=== PATIENT | male | born 1955 | race Caucasian/White ===

== ENCOUNTER 2019-12-25 06:59 | Inpatient (IN) | payer MEDICARE, OTHER ==
[2019-12-25] MEDS ORDERED: SODIUM CHLORIDE 0.9% 1,000 ML IV STA ×2 (07:26)
[2019-12-25] MEDS ORDERED: ONDANSETRON 4 MG/2 ML VIAL IVP STA (07:26)
[2019-12-25] MEDS ORDERED: MORPHINE SULFATE 4 MG/ML SYRINGE IVP STA (07:28)
--- NOTE | 2019-12-25 07:30 | ED ---
Abdominal Pain HPI - General Chief Complaint: Abdominal Pain Stated Complaint: lower abd pain Time Seen by Provider: 12/25/19 07:11 Source: patient, RN notes reviewed, old records reviewed Mode of arrival: ambulatory Limitations: no limitations - History of Present Illness Initial Comments: Patient is a 64-year-old now with a history of Diffuse B cell lymphoma and recent chemotherapy treatments at [facility] and his first treatment was 2 weeks ago. He presents emergency department today with 4 days of left-sided lower abdominal pain and tenderness. He reports he initially thought it was constipated and has been using MiraLAX which she has now had multiple episodes of diarrhea. He complains of lower abdominal cramping pain. He denies dysuria. He states he's had no bloody stools. - Related Data Allergies Allergy/AdvReac Type Severity Reaction Status Date / Time acetaminophen [From Tylenol] Allergy Anaphylaxis Verified 12/25/19 07:10 Review of Systems ROS Statement: Those systems with pertinent positive or pertinent negative responses have been documented in the HPI. ROS Other: All systems not noted in ROS Statement are negative. Past Medical History Past Medical History: Hypertension Additional Past Medical History / Comment(s): lymphoma, History of Any Multi-Drug Resistant Organisms: None Reported Past Surgical History: Adenoidectomy, Appendectomy, Hernia Repair, Tonsillectomy Additional Past Surgical History / Comment(s): left kidney removed Past Psychological History: No Psychological Hx Reported Smoking Status: Former smoker Past Alcohol Use History: Occasional Past Drug Use History: None Reported General Exam - General Exam Comments Initial Comments: 64-year-old male. Alert and oriented 3. Limitations: no limitations General appearance: alert, in no apparent distress Head exam: Present: atraumatic, normocephalic, normal inspection Eye exam: Present: normal appearance, PERRL, EOMI. Absent: scleral icterus, conjunctival injection, periorbital swelling ENT exam: Present: normal exam, normal oropharynx, mucous membranes moist Neck exam: Present: normal inspection. Absent: tenderness, meningismus, lymphadenopathy Respiratory exam: Present: normal lung sounds bilaterally. Absent: respiratory distress, wheezes, rales, rhonchi, stridor Cardiovascular Exam: Present: regular rate, normal rhythm, normal heart sounds. Absent: systolic murmur, diastolic murmur, rubs, gallop, clicks GI/Abdominal exam: Present: soft, tenderness (Left lower quadrant tenderness), normal bowel sounds. Absent: distended, guarding, rebound, rigid Extremities exam: Present: normal inspection, full ROM, normal capillary refill. Absent: tenderness, pedal edema, joint swelling, calf tenderness Back exam: Present: normal inspection, full ROM Neurological exam: Present: alert, oriented X3, CN II-XII intact Psychiatric exam: Present: normal affect, normal mood Skin exam: Present: warm, dry, intact, normal color. Absent: rash Course Vital Signs 12/25/19 07:05 Temperature 98.5 F Pulse Rate 70 Respiratory 20 Rate Blood Pressure 111/69 O2 Sat by Pulse 97 Oximetry - Reevaluation(s) Reevaluation #1: 12/25/19 09:34 I did attempt to fax lab work and contact the RN pulmonary care nurse for heel from his family reports they've been contact with them. Awaiting call from them, Oncologist is Dr. Stone. Medical Decision Making - Medical Decision Making 64-year-old male with complaints of lower abdominal pain for the past 3 days. He has evident history of B-cell lymphoma. On chemotherapy last treatment was 2 weeks ago. Patient was found be neutropenic with blood cell count of 1.7 with a bsolute Patient will count of 37. Patient stated that the oncologist stated that he may need Neulasta. Patient doesn't have improvement after IV hydration and morphine for pain. Computed tomography scan shows evidence of acute diverticulitis. Also mentioned right-sided pelvic atelectasis or possibly recent scone or delayed excretion. Patient's kidney function was within normal limits. Patient was started on Zosyn for concern for diverticulitis and neutropenia. I did fax the patient's lab work to the RN at [facility] and waiting further information. At this time Dr. Mackenzie also discussed case with Sound physician and Patient will be admitted.. - Lab Data Result diagrams: 12/25/19 07:41 12/25/19 07:41 Lab Results 12/25/19 12/25/19 12/25/19 Range/Units 07:41 07:41 07:41 WBC 1.7 L (3.8-10.6) k/uL RBC 4.62 (4.30-5.90) m/uL Hgb 13.1 (13.0-17.5) gm/dL Hct 38.4 L (39.0-53.0) % MCV 83.2 (80.0-100.0) fL MCH 28.3 (25.0-35.0) pg MCHC 34.0 (31.0-37.0) g/dL RDW 14.2 (11.5-15.5) % Plt Count 147 L (150-450) k/uL Neutrophils % (Manual) 22 % Lymphocytes % (Manual) 35 % Monocytes % (Manual) 36 % Eosinophils % (Manual) 6 % Basophils % (Manual) 1 % Neutrophils # (Manual) 0.37 L* (1.3-7.7) k/uL Lymphocytes # (Manual) 0.60 L (1.0-4.8) k/uL Monocytes # (Manual) 0.61 (0-1.0) k/uL Eosinophils # (Manual) 0.10 (0-0.7) k/uL Basophils # (Manual) 0.02 (0-0.2) k/uL Nucleated RBCs 0 (0-0) /100 WBC Manual Slide Review Performed RBC Morphology Normal PT (9.0-12.0) sec INR (<1.2) APTT (22.0-30.0) sec Sodium 137 (137-145) mmol/L Potassium 4.1 (3.5-5.1) mmol/L Chloride 108 H (98-107) mmol/L Carbon Dioxide 25 (22-30) mmol/L Anion Gap 4 mmol/L BUN 20 (9-20) mg/dL Creatinine 1.17 (0.66-1.25) mg/dL Est GFR (CKD-EPI)AfAm 76 (>60 ml/min/1.73 sqM) Est GFR (CKD-EPI)NonAf 66 (>60 ml/min/1.73 sqM) Glucose 103 H (74-99) mg/dL Plasma Lactic Acid Tyler (0.7-2.0) mmol/L Calcium 8.7 (8.4-10.2) mg/dL Total Bilirubin 0.5 (0.2-1.3) mg/dL AST 22 (17-59) U/L ALT 16 (4-49) U/L Alkaline Phosphatase 78 (38-126) U/L Total Protein 6.1 L (6.3-8.2) g/dL Albumin 3.4 L (3.5-5.0) g/dL Amylase 54 (30-110) U/L Lipase 136 (23-300) U/L Urine Color Yellow Urine Appearance Clear (Clear) Urine pH 5.5 (5.0-8.0) Ur Specific [place] 1.022 (1.001-1.035) Urine Protein Trace H (Negative) Urine Glucose (UA) Negative (Negative) Urine Ketones Negative (Negative) Urine Blood Negative (Negative) Urine Nitrite Negative (Negative) Urine Bilirubin Negative (Negative) Urine Urobilinogen <2.0 (<2.0) mg/dL Ur Leukocyte Esterase Negative (Negative) 12/25/19 12/25/19 Range/Units 07:41 07:41 WBC (3.8-10.6) k/uL RBC (4.30-5.90) m/uL Hgb (13.0-17.5) gm/dL Hct (39.0-53.0) % MCV (80.0-100.0) fL MCH (25.0-35.0) pg MCHC (31.0-37.0) g/dL RDW (11.5-15.5) % Plt Count (150-450) k/uL Neutrophils % (Manual) % Lymphocytes % (Manual) % Monocytes % (Manual) % Eosinophils % (Manual) % Basophils % (Manual) % Neutrophils # (Manual) (1.3-7.7) k/uL Lymphocytes # (Manual) (1.0-4.8) k/uL Monocytes # (Manual) (0-1.0) k/uL Eosinophils # (Manual) (0-0.7) k/uL Basophils # (Manual) (0-0.2) k/uL Nucleated RBCs (0-0) /100 WBC Manual Slide Review RBC Morphology PT 9.7 (9.0-12.0) sec INR 0.9 (<1.2) APTT 24.8 (22.0-30.0) sec Sodium (137-145) mmol/L Potassium (3.5-5.1) mmol/L Chloride (98-107) mmol/L Carbon Dioxide (22-30) mmol/L Anion Gap mmol/L BUN (9-20) mg/dL Creatinine (0.66-1.25) mg/dL Est GFR (CKD-EPI)AfAm (>60 ml/min/1.73 sqM) Est GFR (CKD-EPI)NonAf (>60 ml/min/1.73 sqM) Glucose (74-99) mg/dL Plasma Lactic Acid Tyler 0.6 L (0.7-2.0) mmol/L Calcium (8.4-10.2) mg/dL Total Bilirubin (0.2-1.3) mg/dL AST (17-59) U/L ALT (4-49) U/L Alkaline Phosphatase (38-126) U/L Total Protein (6.3-8.2) g/dL Albumin (3.5-5.0) g/dL Amylase (30-110) U/L Lipase (23-300) U/L Urine Color Urine Appearance (Clear) Urine pH (5.0-8.0) Ur Specific [place] (1.001-1.035) Urine Protein (Negative) Urine Glucose (UA) (Negative) Urine Ketones (Negative) Urine Blood (Negative) Urine Nitrite (Negative) Urine Bilirubin (Negative) Urine Urobilinogen (<2.0) mg/dL Ur Leukocyte Esterase (Negative) - Radiology Data Radiology results: report reviewed Exam positive for acute diverticulitis with proximal sigmoid colon in mild/moderate formation. No abscess or free air. Mild right-sided pelvic ectasis may be transient or could reflect a recently passed stone. Some degree of UPJ obstruction or underlying acute kidney injury is also possibility given the delayed excretion of contrast from the right kidney. Correlate with patient's renal function. A few enlarged retroperitoneal lymph nodes measuring up to 1.7 cm. Underlying metastatic disease is not excluded this time. Cor relate to relevant oncology history. Follow-up and management recommended. Prior left nephrectomy and adrenalectomy. Mildly dilated pancreatic duct at 5 mm no distal obstruction lesion is seen. This may be chronic as Patient could represent a branch IPM and. Any priors. 8 mm left basilar nodule compared outside prior. Disposition Clinical Impression: Neutropenia, Diverticulitis, B-cell lymphoma Disposition: ADMITTED IP TO THIS HOSP Is patient prescribed a controlled substance at d/c from ED?: No Referrals: Matt Mayberry MD [Primary Care Provider] - 1-2 days Time of Disposition: 09:34
[2019-12-25 08:01] LABS: Albumin 3.4 g/dL (3.5-5.0); Appearance,Urine Clear (Clear); Bilirubin,Urine Negative (Negative); Blood,Urine Negative (Negative); Calcium 8.7 mg/dL (8.4-10.2); Color,Urine Yellow; Glucose,Urine (UA) Negative (Negative); Ketones,Urine Negative (Negative); Leukocyte Esterase,Urine Negative (Negative); Nitrite,Urine Negative (Negative); PH, Urine 5.5 (5.0-8.0); Potassium 4.1 mmol/L (3.5-5.1); Protein,Urine Trace (Negative); Specific Gravity,Urine 1.022 (1.001-1.035); Total Bilirubin 0.5 mg/dL (0.2-1.3); Total Protein 6.1 g/dL (6.3-8.2); Urobilinogen,Urine <2.0 mg/dL (<2.0)
[2019-12-25 08:02] LABS: INR 0.9 (<1.2); Partial Thromboplastin Time 24.8 sec (22.0-30.0); Prothrombin Time 9.7 sec (9.0-12.0)
[2019-12-25 08:10] LABS: HCT 38.4 % (39.0-53.0); HGB 13.1 gm/dL (13.0-17.5); MCH 28.3 pg (25.0-35.0); MCV 83.2 fL (80.0-100.0); Mean Platelet Volume 8.4; Platelet Count 147 k/uL (150-450); RBC 4.62 m/uL (4.30-5.90); RDW 14.2 % (11.5-15.5); WBC 1.7 k/uL (3.8-10.6)
--- NOTE | 2019-12-25 08:48 | CT ---
EXAMINATION TYPE: CT abdomen pelvis w con DATE OF EXAM: 12/25/2019 COMPARISON: NONE HISTORY: 64-year-old male LLQ pain TECHNIQUE: Contiguous axial scanning of the abdomen and pelvis following administration of 100 ml Iso nata 300 IV contrast. Delayed images through the kidneys and coronal/sagittal reconstructions perform ed. CT DLP: 1892.3 mGycm Automated exposure control for dose reduction was used. FINDINGS: Heart normal size without pericardial effusion. Some strandy atelectasis at the lung bases without pl eural effusion. 8 mm pulmonary nodule at the left base overlying the hemidiaphragm, axial image 12 ca n be reassessed in 3 months. No focal liver lesion or biliary ductal dilatation. Portal venous system is patent. Gallbladder and spleen appear within normal limits. Left adrenal gland and left kidney are likely absent. Diffuse thickening of the right adrenal gland without discrete nodularity. Mild right-sided pelvicaliectasis with delayed excretion of contrast from the right kidney. No obstru cting stone. The ureter does not appear particularly dilated. Enlarged retroperitoneal lymph nodes measuring 1.6 cm retrocaval and 1.2 and 1.7 cm aortocaval. No dilated small bowel, free fluid, or free air. Liquid stool within the right side of the colon and some prominent fluid-filled small bowel loops in the left lower quadrant. Suspect a regional ileus. There is left-sided colonic diverticulosis, greate st in the sigmoid colon with short segment moderate wall thickening with surrounding inflammatory fat stranding at the proximal sigmoid. The main pancreatic duct is mildly dilated at 5 mm. No distal obstructing lesion seen. Mild circumferential bladder wall thickening. No abnormal fluid collection in the pelvis or pelvic ly mphadenopathy. Bones: Mild degenerative change of the hips. Hypertrophic facet arthropathy lumbar spine with grade 1 anterolisthesis of L4-L5. [facility] within the lower thoracic spine. IMPRESSION: 1. EXAM POSITIVE FOR ACUTE DIVERTICULITIS OF THE PROXIMAL SIGMOID WITH MILD TO MODERATE INFLAMMATION. NO ABSCESS OR FREE AIR. 2. MILD RIGHT-SIDED PELVICALIECTASIS MAY BE TRANSIENT OR COULD REFLECT A RECENTLY PASSED STONE. SOME DEGREE OF UPJ OBSTRUCTION OR UNDERLYING ACUTE KIDNEY INJURY IS ALSO A POSSIBILITY GIVEN THE DELAYED E XCRETION OF CONTRAST FROM THE RIGHT KIDNEY. CORRELATE WITH PATIENT'S RENAL FUNCTION. 3. A FEW ENLARGED RETROPERITONEAL LYMPH NODES MEASURING UP TO 1.7 CM. UNDERLYING METASTATIC DISEASE I S NOT EXCLUDED AT THIS TIME. CORRELATE TO ANY RELEVANT ONCOLOGIC HISTORY. APPROPRIATE FOLLOW-UP AN D MANAGEMENT RECOMMENDED. 4. WE NOTE A PRIOR LEFT NEPHRECTOMY AND ADRENALECTOMY. 5. MILDLY DILATED MAIN PANCREATIC DUCT AT 5 MM. NO DISTAL OBSTRUCTING LESION IS SEEN. THIS MAY BE CHR ONIC IN THIS PATIENT OR COULD REPRESENT A MAIN BRANCH IPMN. COMPARE WITH ANY AVAILABLE OUTSIDE PRIORS . 6. AN 8 MM LEFT BASILAR NODULE. COMPARE WITH ANY AVAILABLE OUTSIDE PRIORS. THREE-MONTH FOLLOW-UP CT C HEST CAN REASSESS
[2019-12-25 08:55] LABS: Neutrophils % (M) 22 %
[2019-12-25 09:01] LABS: Basophils # (M) 0.02 k/uL (0-0.2); Monocytes # (M) 0.61 k/uL (0-1.0); Neutrophils # (M) 0.37 k/uL (1.3-7.7); Nucleated Red Blood Cells 0 /100 WBC (0-0); Total Cells Counted 100
[2019-12-25] MEDS ORDERED: PIPERACILLIN-TAZOBACTAM 3.375 GM in SODIUM CHLORIDE 0.9% 100 ML IVPB STA (09:25)
[2019-12-25] MEDS ORDERED: ONDANSETRON 4 MG/2 ML VIAL IVP PRN (09:51)
[2019-12-25] MEDS ORDERED: IBUPROFEN 400 MG TAB PO PRN (09:51)
[2019-12-25] MEDS ORDERED: MORPHINE SULFATE 4 MG/ML SYRINGE IV PRN (09:51)
[2019-12-25] MEDS ORDERED: NALOXONE 0.4 MG/ML 1 ML VIAL IV PRN ×2 (09:51→18:04)
[2019-12-25] MEDS: SODIUM CHLORIDE 0.9% 1,000 ML IV SCH ×2 (10:36→22:49)
[2019-12-25] MEDS: KETOROLAC 15 MG/ML 1 ML VIAL IVP PRN ×2 (12:57→19:02)
[2019-12-25] MEDS: PIPERACILLIN-TAZOBACTAM 3.375 GM in SODIUM CHLORIDE 0.9% 100 ML IVPB SCH (16:25)
[2019-12-25] MEDS: carvediloL 6.25 MG TAB PO SCH (16:26)
[2019-12-25] MEDS ORDERED: MELATONIN 3 MG TABLET PO PRN (18:04)
[2019-12-25] MEDS ORDERED: traMADol 50 MG TAB PO PRN (18:04)
--- NOTE | 2019-12-25 18:08 | P.HPIM ---
History of Present Illness H&P Date: 12/25/19 Chief Complaint: Abdominal pain Patient is a 64-year-old male with a past medical history of diffuse B-cell lymphoma with first dose of chemotherapy on 12/12/2022 [facility], hypertension, and prior left renal cancer status post nephrectomy who presented to the ER with complaints of crampy abdominal pain. In the ER he underwent extensive evaluation. His vital signs on arrival were within normal limits. Laboratory analysis showed a white blood cell count of 1.7, absolute neutrophil count of 0.37, plasma lactic acid 0.6, albumin 3.4, and the remainder of his labs were unremarkable. He underwent a CT abdomen and pelvis which demonstrated acute diverticulitis in the proximal sigmoid colon but no abscess or free air. He was found to have some degree of obstruction of the right ureter as well as enlarged retroperitoneal lymph nodes measuring up to 1.7 cm-he reports that this is consistent with his prior outpatient scans. In the ER he was started on Zosyn, IV fluids, and pain medications. He was admitted for further monitoring. Patient seen and examined at bedside in the emergency department. He complains of abdominal pain for the last 6 days. He initially was having crampy abdominal pain that felt like he needed to have a bowel movement. He called his oncologist and was started on MiraLAX, as constipation is a known side effect of his chemotherapy regimen. He was taking MiraLAX every 4 hours and had a bowel movement followed by diarrhea for last 3 days. He states that his pain has been increasing over the last 6 days and the bowel movement did not completely relieve the pain but did help but slightly. He denies any blood in his bowel movements. He states he has been tolerating a diet. He denies any overall fatigue. No fevers. He has had some nausea but no vomiting. He reports that he had difficulty urinating secondary to external obstruction from his lymphadenopathy with this is unchanged. He reports that he had a colonoscopy quite some time ago. He reports that he had similar symptoms back in May and underwent a CAT scan in July which showed diverticulitis. That was limiting contrast cancer. He never required oral medications as his symptoms resolved before he got follow-up from his primary care physician. He also reports long bone pain and chest wall pain which is a known side effect of chemotherapy. Review of Systems Pertinent positives and negatives as discussed in HPI, a complete review of systems was performed and all other systems are negative. Past Medical History Past Medical History: Hypertension Additional Past Medical History / Comment(s): lymphoma, renal cancer Left kidney stage IV Mar 2004, Gout History of Any Multi-Drug Resistant Organisms: None Reported Past Surgical History: Adenoidectomy, Appendectomy, Hernia Repair, Tonsillectomy Additional Past Surgical History / Comment(s): left kidney removed Past Psychological History: No Psychological Hx Reported Smoking Status: Former smoker Past Alcohol Use History: Occasional Past Drug Use History: None Reported - Past Family History Father Family Medical History: Congestive Heart Failure (CHF) (o) Mother Additional Family Medical History / Comment(s): old age Medications and Allergies Home Medications Medication Instructions Recorded Confirmed Type Allopurinol [Zyloprim] 100 mg PO DAILY 12/25/19 12/25/19 History Carvedilol [Coreg] 6.25 mg PO BID 12/25/19 12/25/19 History Torsemide [Demadex] 30 mg PO DAILY 12/25/19 12/25/19 History amLODIPine [Norvasc] 10 mg PO DAILY 12/25/19 12/25/19 History lisinopriL 40 mg PO DAILY 12/25/19 12/25/19 History Allergies Allergy/AdvReac Type Severity Reaction Status Date / Time acetaminophen [From Tylenol] Allergy Anaphylaxis Verified 12/25/19 10:47 adhesive tape Allergy BLISTERS Verified 12/25/19 10:47 Physical Exam Osteopathic Statement: *. No significant issues noted on an osteopathic structural exam other than those noted in the History and Physical/Consult. Vitals: Vital Signs Temp Pulse Resp BP Pulse Ox 12/25/19 12:56 97.1 F L 65 18 127/69 96 12/25/19 10:17 97.6 F 63 18 113/73 98 12/25/19 07:05 98.5 F 70 20 111/69 97 Intake and Output 12/25/19 12/25/19 12/25/19 06:59 14:59 22:59 Other: Weight 113.398 kg General: Ill appearing, mild distress secondary to pain appears older than stated age Derm: warm, dry Head: atraumatic, normocephalic, symmetric Eyes: EOMI, no lid lag, anicteric sclera, pupils equal round reactive to light ENT: Nose and ears atraumatic, no thrush, no pharyngeal erythema Neck: No thyromegaly, no cervical lymphadenopathy, trachea midline, supple Mouth: no lip lesion, mucus membranes moist Cardiovascular: S1S2 reg, no murmur, positive posterior tibial pulse bilateral, no edema, capillary refill less than 2 seconds Lungs: clear to ascultation bilateral, no ronchi, no rales, no wheeze, no accessory muscle use Abdominal: Bowel sounds, soft, nondistended, tender to palpation left lower quadrant, hepatomegaly Ext: no gross muscle atrophy, muscle strength muscle strength 5 out of 5 in all 4 extremities, no contractures Neuro: CN II-XI grossly intact, light touch intact all 4 extremities, finger to nose within normal limits, Psych: Alert, oriented, appropriate affect Results CBC & Chem 7: 12/25/19 07:41 12/25/19 07:41 Labs: Abnormal Lab Results - Last 24 Hours (Table) 12/25/19 12/25/19 12/25/19 Range/Units 07:41 07:41 07:41 WBC 1.7 L (3.8-10.6) k/uL Hct 38.4 L (39.0-53.0) % Plt Count 147 L (150-450) k/uL Neutrophils # (Manual) 0.37 L* (1.3-7.7) k/uL Lymphocytes # (Manual) 0.60 L (1.0-4.8) k/uL Chloride 108 H (98-107) mmol/L Glucose 103 H (74-99) mg/dL Plasma Lactic Acid Tyler (0.7-2.0) mmol/L Total Protein 6.1 L (6.3-8.2) g/dL Albumin 3.4 L (3.5-5.0) g/dL Urine Protein Trace H (Negative) 12/25/19 Range/Units 07:41 WBC (3.8-10.6) k/uL Hct (39.0-53.0) % Plt Count (150-450) k/uL Neutrophils # (Manual) (1.3-7.7) k/uL Lymphocytes # (Manual) (1.0-4.8) k/uL Chloride (98-107) mmol/L Glucose (74-99) mg/dL Plasma Lactic Acid Tyler 0.6 L (0.7-2.0) mmol/L Total Protein (6.3-8.2) g/dL Albumin (3.5-5.0) g/dL Urine Protein (Negative) Thrombosis Risk Factor Assmnt - DVT/VTE Prophylaxis DVT/VTE Prophylaxis: Pharmacologic Prophylaxis ordered Assessment and Plan Assessment: Acute diverticulitis -Clear liquids, antibiotics, IV fluids, Zosyn, pain control Diffuse B-cell lymphoma with leukopenia and thrombocytopenia -Continue outpatient follow-up with [facility] -If white count is not improved in a.m. we'll consult hematology oncology to consider GM-CSF Hypertension, controlled -Continue lisinopril, Norvasc, and Coreg -Follow blood pressures Gout -Allopurinol The patient is admitted with an anticipated greater than 2 midnight stay for evaluation of acute diverticulitis in the setting of chemotherapy and leukopenia. Surrogate decision-maker: DVT prophylaxis: Lovenox Discussed with: Patient, nursing, ED physician Anticipated discharge date: 2-[address]: home A total of 75 minutes was spent on the care of this complex patient more than 50% of the time was spent in counseling and care coordination.
[2019-12-26] MEDS: PIPERACILLIN-TAZOBACTAM 3.375 GM in SODIUM CHLORIDE 0.9% 100 ML IVPB SCH ×3 (00:49→15:41)
[2019-12-26] MEDS: KETOROLAC 15 MG/ML 1 ML VIAL IVP PRN (03:01)
[2019-12-26] MEDS: SODIUM CHLORIDE 0.9% 1,000 ML IV SCH ×2 (07:16→21:07)
[2019-12-26 07:35] LABS: HGB 11.6 gm/dL (13.0-17.5); MCHC 33.1 g/dL (31.0-37.0); MCV 84.5 fL (80.0-100.0); Mean Platelet Volume 8.6; Platelet Count 162 k/uL (150-450); RBC 4.14 m/uL (4.30-5.90); RDW 14.3 % (11.5-15.5)
[2019-12-26 07:47] LABS: WBC 1.4 k/uL (3.8-10.6)
[2019-12-26] MEDS: carvediloL 6.25 MG TAB PO SCH ×2 (07:49→21:03)
[2019-12-26] MEDS: lisinopriL 20 MG TAB PO SCH (07:49)
[2019-12-26] MEDS: amLODIPine 10 MG TAB PO SCH (07:49)
[2019-12-26] MEDS: TORSEMIDE 20 MG TAB PO SCH (07:50)
[2019-12-26] MEDS: PANTOPRAZOLE 40 MG/10 ML VIAL IV SCH (07:50)
[2019-12-26] MEDS: ENOXAPARIN 40 MG/0.4 ML SYRINGE SQ SCH (07:51)
[2019-12-26] MEDS ORDERED: guaiFENesin 600 MG TABLET.ER PO PRN (08:43)
[2019-12-26 09:30] LABS: African American GFR (CKD) 67.3 (60.0-200.0); Albumin 3.4 g/dL (3.80-4.90); Albumin/Globulin Ratio 1.89 (1.60-3.17); Anion Gap 4.4 mmol/L (4.00-12.00); BUN/Creat Ratio 9.23 Ratio (12.00-20.00); Carbon Dioxide 26.6 mmol/L (21.6-31.8); Globulin 1.8 g/dL (1.6-3.3); Magnesium 1.8 mg/dL (1.5-2.4); Non-African American GFR(CKD) 58.1 (60.0-200.0); Phosphorus 2.8 mg/dL (2.4-5.1); Potassium 4.1 mmol/L (3.5-5.5); Total Bilirubin 0.3 mg/dL (0.3-1.2); Total Protein 5.2 g/dL (6.2-8.2)
[2019-12-26] MEDS: allopurinoL 100 MG TAB PO SCH (09:47)
[2019-12-26] MEDS: LORATADINE 10 MG TAB PO SCH (09:47)
[2019-12-26 11:01] LABS: Neutrophils % (M) 16 %
[2019-12-26 11:02] LABS: Band Neutrophils % 1 %; Basophils # (M) 0.01 k/uL (0-0.2); Eosinophils # (M) 0.01 k/uL (0-0.7); Monocytes # (M) 0.53 k/uL (0-1.0); Nucleated Red Blood Cells 0 /100 WBC (0-0); Total Cells Counted 100
--- NOTE | 2019-12-26 15:22 | P.PN ---
Subjective Progress Note Date: 12/26/19 (delayed charting seen at 0800) Principal diagnosis: abdominal pain Patient is a 64-year-old male with a past medical history of diffuse B-cell lymphoma with first dose of chemotherapy on 12/13/2019 [facility], hypertension, and prior left renal cancer status post nephrectomy who presented to the ER with complaints of crampy abdominal pain. In the ER he u nderwent extensive evaluation. His vital signs on arrival were within normal limits. Laboratory analysis showed a white blood cell count of 1.7, absolute neutrophil count of 0.37, plasma lactic acid 0.6, albumin 3.4, and the remainder of his labs were unremarkable. He underwent a CT abdomen and pelvis which demonstrated acute diverticulitis in the proximal sigmoid colon but no abscess or free air. He was found to have some degree of obstruction of the right ureter as well as enlarged retroperitoneal lymph nodes measuring up to 1.7 cm-he reports that this is consistent with his prior outpatient scans. In the ER he was started on Zosyn, IV fluids, and pain medications. He was admitted for further monitoring and treatment of his acute diverticulitis with neutropenia. His WBC decreased and heme/onc consulted regard GM-CSF use. Patient seen and examined at bedside. C/O sore throat and nasal congestion that started today, taste altered but feels due to chemo. No chest pain, no shortness of breath, no nausea, Still some abdominal but much improved from yesterday. Still with unformed bowel movements. General: non toxic, no distress, appears at stated age Derm: warm, dry Head: atraumatic, normocephalic, symmetric Eyes: EOMI, no lid lag, anicteric sclera Mouth: no lip lesion, mucus membranes moist Cardiovascular: S1S2 reg, no murmur, positive posterior tibial pulse bilateral, Lungs: CTA bilateral, no rhonchi, no rales , no accessory muscle use Abdominal: soft, nontender to palpation, no guarding, no appreciable organomegaly Ext: no gross muscle atrophy, no edema, no contractures Neuro: CN II-XI grossly intact, no focal neuro deficits Psych: Alert, oriented, appropriate affect Acute diverticulitis -Advance to full liquid diet, antiemetics, IV fluids, Zosyn, pain control Diffuse B-cell lymphoma with neutropenia and thrombocytopenia -Continue outpatient follow-up with [facility] -Await heme/onc recs: D/W Dr. Chinchilla Hypertension, controlled -Continue lisinopril, Norvasc, and Coreg -Follow blood pressures Rhinosinusitis - claritin - COVID-19 negative Gout -Allopurinol DVT prophylaxis: Lovenox Discussed with: Patient, nursing, Dr. Chinchilla Anticipated discharge date: 2-[address]: home A total of 35 minutes was spent on the care of this complex patient more than 50% of the time was spent in counseling and care coordination. Objective - Vital Signs Vital signs: Vital Signs Temp 97.6 F 12/26/19 14:10 Pulse 62 12/26/19 14:10 Resp 17 12/26/19 14:10 BP 128/76 12/26/19 14:10 Pulse Ox 99 12/26/19 14:10 Intake & Output 12/25/19 12/26/19 12/26/19 18:59 06:59 18:59 Intake Total 590 Balance 590 Weight 113.398 kg 113.398 kg Intake: Intake, IV Titration 300 Amount Piperacillin-Tazobactam 3 100 .375 gm In Sodium Chloride 0.9% 100 ml @ 25 mls/hr IVPB Q8HR CAS Rx# :[id number] Sodium Chloride 0.9% 1, 200 000 ml @ 100 mls/hr IV . Q10H CAS Rx#:[id number] Oral 290 Other: Voiding Method Toilet Toilet # Voids 1 2 - Labs CBC & Chem 7: 12/26/19 06:15 12/26/19 06:15 Labs: Abnormal Lab Results - Last 24 Hours (Table) 12/26/19 12/26/19 Range/Units 06:15 06:15 WBC 1.4 L* (3.8-10.6) k/uL RBC 4.14 L (4.30-5.90) m/uL Hgb 11.6 L (13.0-17.5) gm/dL Hct 35.0 L (39.0-53.0) % Neutrophils # (Manual) 0.20 L* (1.3-7.7) k/uL Lymphocytes # (Manual) 0.60 L (1.0-4.8) k/uL Est GFR (CKD-EPI)NonAf 58.1 L (60.0-200.0) BUN/Creatinine Ratio 9.23 L (12.00-20.00) Ratio Total Protein 5.2 L (6.2-8.2) g/dL Albumin 3.40 L (3.80-4.90) g/dL Microbiology - Last 24 Hours (Table) 12/25/19 10:25 Blood Culture - Preliminary Blood No Growth after 24 hours
[2019-12-26] MEDS: FILGRASTIM-SNDZ 480 MCG/0.8 ML SYRINGE SQ SCH (15:41)
[2019-12-26 20:35] VITALS: RESP 16
--- NOTE | 2019-12-26 21:38 | P.CONS ---
History of Present Illness - Reason for Consult Consult date: 12/26/19 NHL Requesting physician: Gabi Olvera - Chief Complaint Abdominal Pain - History of Present Illness Mr. Oleary presents to [facility] with complaints of abdominal pain. He is currently undergoing treatment for NHL out of the [facility]. It is believed he received R-CHOP without growth factor on 12/13/19. He has a known history of Hypertension, left renal cancer and nephrectomy. He described his abdominal pain as severe cramping, and soft frequent bowel movements which do provide some relief. CT abdomen and pelvis which demonstrated acute diverticulit is in the proximal sigmoid colon but no abscess or free air. He was found to have some degree of obstruction of the right ureter as well as enlarged retroperitoneal lymph nodes measuring up to 1.7 cm-he reports that this is consistent with his prior outpatient scans. His WBC and Neutrophils are low and we have started him on growth factor. Diet restriction and IV antibiotics initiated per primary team for treatment of acute diverticulitis. 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, first chemo treatment 12/12 at [facility],, renal cancer Left kidney stage IV Mar 2004, Gout History of Any Multi-Drug Resistant Organisms: None Reported Past Surgical History: Adenoidectomy, Appendectomy, Hernia Repair, Tonsillectomy Additional Past Surgical History / Comment(s): left kidney removed Past Anesthesia/Blood Transfusion Reactions: No Reported Reaction Past Psychological History: No Psychological Hx Reported Smoking Status: Former smoker Past Alcohol Use History: Occasional Past Drug Use History: None Reported - Past Family History Father Family Medical History: Congestive Heart Failure (CHF) Mother Additional Family Medical History / Comment(s): old age Medications and Allergies Home Medications Medication Instructions Recorded Confirmed Type Allopurinol [Zyloprim] 100 mg PO DAILY 12/25/19 12/25/19 History Carvedilol [Coreg] 6.25 mg PO BID 12/25/19 12/25/19 History Multivitamin [Multivitamins Adult 1 tablet PO DAILY 12/25/19 12/25/19 History Gummies] Torsemide [Demadex] 30 mg PO DAILY 12/25/19 12/25/19 History amLODIPine [Norvasc] 10 mg PO DAILY 12/25/19 12/25/19 History lisinopriL 40 mg PO DAILY 12/25/19 12/25/19 History Allergies Allergy/AdvReac Type Severity Reaction Status Date / Time acetaminophen [From Tylenol] Allergy Anaphylaxis Verified 12/25/19 22:25 adhesive tape Allergy BLISTERS Verified 12/25/19 22:25 Physical Exam Vitals: Vital Signs Temp Pulse Pulse Resp BP BP BP 12/26/19 20:34 98.3 F 63 16 135/85 12/26/19 14:10 97.6 F 62 17 128/76 12/26/19 07:36 97.4 F L 60 17 124/79 12/26/19 06:00 98.9 F 12/26/19 05:06 97.8 F 57 L 18 119/65 12/25/19 21:26 98.4 F 63 18 138/67 Pulse Ox 12/26/19 20:34 96 12/26/19 14:10 99 12/26/19 07:36 99 12/26/19 06:00 12/26/19 05:06 97 12/25/19 21:26 97 Intake and Output 12/26/19 12/26/19 12/26/19 06:59 14:59 22:59 Intake Total 300 Balance 300 Intake: Intake, IV Titration 300 Amount Piperacillin-Tazobactam 3 100 .375 gm In Sodium Chloride 0.9% 100 ml @ 25 mls/hr IVPB Q8HR CAS Rx# :[id number] Sodium Chloride 0.9% 1, 200 000 ml @ 100 mls/hr IV . Q10H CAS Rx#:[id number] Other: Voiding Method Toilet Toilet Toilet # Voids 1 2 - Constitutional General appearance: cooperative, no acute distress - EENT Eyes: EOMI, PERRLA ENT: NA/AT, normal oropharynx - Neck Neck: normal ROM - Respiratory Respiratory: bilateral: CTA - Cardiovascular Rhythm: regular Heart sounds: normal: S1, S2 - Gastrointestinal General gastrointestinal: normal bowel sounds, soft - Integumentary Integumentary: pale - Neurologic Neurologic: CNII-XII intact - Musculoskeletal Musculoskeletal: generalized weakness, strength equal bilaterally - Psychiatric Psychiatric: A&O x's 3, appropriate affect, intact judgment & insight Results CBC & Chem 7: 12/26/19 06:15 11/11/20 06:15 Labs: Abnormal Lab Results - Last 24 Hours (Table) 12/26/19 12/26/19 Range/Units 06:15 06:15 WBC 1.4 L* (3.8-10.6) k/uL RBC 4.14 L (4.30-5.90) m/uL Hgb 11.6 L (13.0-17.5) gm/dL Hct 35.0 L (39.0-53.0) % Neutrophils # (Manual) 0.20 L* (1.3-7.7) k/uL Lymphocytes # (Manual) 0.60 L (1.0-4.8) k/uL Est GFR (CKD-EPI)NonAf 58.1 L (60.0-200.0) BUN/Creatinine Ratio 9.23 L (12.00-20.00) Ratio Total Protein 5.2 L (6.2-8.2) g/dL Albumin 3.40 L (3.80-4.90) g/dL Microbiology - Last 24 Hours (Table) 12/25/19 10:25 Blood Culture - Preliminary Blood No Growth after [address] scan - abdomen: report reviewed CT scan - pelvis: report reviewed Assessment and Plan (1) Normocytic anemia Narrative/Plan: Stable - If less than 7 transfuse Current Visit: Yes Status: Acute Code(s): D64.9 - ANEMIA, UNSPECIFIED SNOMED Code(s): 074481033 (2) B-cell lymphoma Narrative/Plan: - Treatment [facility] - Status POst R-CHOP does not believe he received Growth factor, although either way past the allocated timeframe and adding zarxio is indicated at this point - Monitor for TLS - Stop NSAIDS unless absolutely necessary Current Visit: Yes Status: Acute Code(s): C85.10 - UNSPECIFIED B-CELL LYMPHOMA, UNSPECIFIED SITE SNOMED Code(s): 653309165 (3) Diverticulitis Narrative/Plan: - Per Primary team, IV Zosyn Current Visit: Yes Status: Acute Code(s): K57.92 - DVTRCLI OF INTEST, PART UNSP, W/O PERF OR ABSCESS W/O BLEED SNOMED Code(s): 332022193 (4) Neutropenia Narrative/Plan: - Secondary to Chemotherapy, Lymphoma, and acute Inflammatory process -Huynh Cultures Pending - Zarxio to increase immune support Current Visit: Yes Status: Acute Code(s): D70.9 - NEUTROPENIA, UNSPECIFIED SNOMED Code(s): 788252003 Plan: Physician Attest: I have performed the complete history and ohysical and agree with above dictation, dictated as a scribe
[2019-12-27] MEDS: PIPERACILLIN-TAZOBACTAM 3.375 GM in SODIUM CHLORIDE 0.9% 100 ML IVPB SCH ×2 (01:29→08:53)
[2019-12-27 06:18] LABS: HCT 38.6 % (39.0-53.0); HGB 12.7 gm/dL (13.0-17.5); MCH 27.8 pg (25.0-35.0); MCHC 32.7 g/dL (31.0-37.0); MCV 85.1 fL (80.0-100.0); Mean Platelet Volume 7.7; Platelet Count 224 k/uL (150-450); RBC 4.54 m/uL (4.30-5.90); RDW 13.9 % (11.5-15.5)
[2019-12-27 07:02] LABS: Band Neutrophils % 38 %; Lymphocytes # (M) 1.04 k/uL (1.0-4.8); Monocytes # (M) 0.88 k/uL (0-1.0); Neutrophils % (M) 14 %; Nucleated Red Blood Cells 0 /100 WBC (0-0); Total Cells Counted 200
[2019-12-27] MEDS: FILGRASTIM-SNDZ 480 MCG/0.8 ML SYRINGE SQ SCH (08:53)
[2019-12-27] MEDS: PANTOPRAZOLE 40 MG/10 ML VIAL IV SCH (08:53)
[2019-12-27] MEDS: allopurinoL 100 MG TAB PO SCH (08:54)
[2019-12-27] MEDS: carvediloL 6.25 MG TAB PO SCH (08:54)
[2019-12-27] MEDS: amLODIPine 10 MG TAB PO SCH (08:55)
[2019-12-27] MEDS: LORATADINE 10 MG TAB PO SCH (08:55)
[2019-12-27] MEDS: TORSEMIDE 20 MG TAB PO SCH (08:55)
[2019-12-27] MEDS: lisinopriL 20 MG TAB PO SCH (08:55)
[2019-12-27] MEDS: ENOXAPARIN 40 MG/0.4 ML SYRINGE SQ SCH (08:56)
[2019-12-27 10:20] LABS: African American GFR (CKD) 61.5 (60.0-200.0); Albumin 3.5 g/dL (3.80-4.90); Albumin/Globulin Ratio 1.67 (1.60-3.17); Anion Gap 7.1 mmol/L (4.00-12.00); BUN/Creat Ratio 5.71 Ratio (12.00-20.00); Calcium 9.1 mg/dL (8.7-10.3); Carbon Dioxide 28.9 mmol/L (21.6-31.8); Globulin 2.1 g/dL (1.6-3.3); Magnesium 1.7 mg/dL (1.5-2.4); Non-African American GFR(CKD) 53.1 (60.0-200.0); Potassium 4.1 mmol/L (3.5-5.5); Total Bilirubin 0.3 mg/dL (0.2-1.2); Total Protein 5.6 g/dL (6.2-8.2); Uric Acid 4.8 mg/dL (3.7-8.7)
[2019-12-27 14:04] VITALS: BP 129/78; PULSE 69; TEMP 97.6
--- NOTE | 2019-12-27 17:49 | P.DS ---
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 In the ER he underwent extensive evaluation. His vital signs on arrival were within normal limits. Laboratory analysis showed a white blood cell count of 1.7, absolute neutrophil count of 0.37, plasma lactic acid 0.6, albumin 3.4, and the remainder of his labs were unremarkable. He underwent a CT abdomen and pelvis which demonstrated acute diverticulitis in the proximal sigmoid colon but no abscess or free air. He was found to have some degree of obstruction of the right ureter as well as enlarged retroperitoneal lymph nodes measuring up to 1.7 cm-he reports that this is consistent with his prior outpatient scans. In the ER he was started on Zosyn, IV fluids, and pain medications. He was admitted for further monitoring and treatment of his acute diverticulitis with neutropenia. His WBC decreased and heme/onc consulted regard GM-CSF use. Hematology oncology agreed with starting filgrastim He was maintained nothing by mouth until his white blood cell count increased. He had a rapid response to the GM-CSF and his white blood cell count was 4 on 12/26. He was started on a full liquid diet which he tolerated well. His pain was well-controlled. He was afebrile. He was determined stable for discharge home. He will complete a seven-day course of Flagyl and Levaquin for treatment of his diverticulitis. He will keep his already scheduled appointment with [facility] oncology regarding his next chemotherapy infusion and port placement. Patient seen and examined at bedside. Abdominal pain 90% better, feeling hungry, no nausea, no vomiting. Having less frequent bowel movements. Vital signs reviewed and stable. General: non toxic, no distress, appears at stated age Derm: warm, dry Head: atraumatic, normocephalic, symmetric Eyes: EOMI, no lid lag, anicteric sclera Mouth: no lip lesion, mucus membranes moist Cardiovascular: S1S2 reg, no murmur, positive posterior tibial pulse bilateral, Lungs: CTA bilateral, no rhonchi, no rales , no accessory muscle use Abdominal: soft, nontender to palpation, no guarding, no appreciable organomegaly Ext: no gross muscle atrophy, no edema, no contractures Neuro: CN II-XI grossly intact, no focal neuro deficits Psych: Alert, oriented, appropriate affect A total of 35 minutes of time were spent preparing this complex discharge summary . Patient Condition at Discharge: Stable Plan - Discharge Summary Discharge Rx Participant: No New Discharge Prescriptions: New metroNIDAZOLE [Flagyl] 500 mg PO TID #21 tab Levofloxacin [Levaquin] 750 mg PO DAILY 7 Days #7 tab Continue lisinopriL 40 mg PO DAILY amLODIPine [Norvasc] 10 mg PO DAILY Carvedilol [Coreg] 6.25 mg PO BID Allopurinol [Zyloprim] 100 mg PO DAILY Torsemide [Demadex] 30 mg PO DAILY Multivitamin [Multivitamins Adult Gummies] 1 tablet PO DAILY Discharge Medication List Allopurinol [Zyloprim] 100 mg PO DAILY 12/25/19 [History] Carvedilol [Coreg] 6.25 mg PO BID 12/25/19 [History] Multivitamin [Multivitamins Adult Gummies] 1 tablet PO DAILY 12/25/19 [History] Torsemide [Demadex] 30 mg PO DAILY 12/25/19 [History] amLODIPine [Norvasc] 10 mg PO DAILY 12/25/19 [History] lisinopriL 40 mg PO DAILY 12/25/19 [History] Levofloxacin [Levaquin] 750 mg PO DAILY 7 Days #7 tab 12/27/19 [Rx] metroNIDAZOLE [Flagyl] 500 mg PO TID #21 tab 12/27/19 [Rx] Follow up Appointment(s)/Referral(s): Matt Mayberry MD [Primary Care Provider] - 1-2 days (Please call to set up your appointment with your primary care physician for the next 1 - 2 days) Seng Arvizu [STAFF PHYSICIAN] - As Needed (option for PCP) Patient Instructions/Handouts: Diverticulitis (DC), Neutropenia (DC) Activity/Diet/Wound Care/Special Instructions: Activity: as tolerated Diet: Full liquid for 3 days and then low residual until follow up with family physician Special Instructions: Follow-up with [facility] oncology as previously scheduled. Discharge Disposition: HOME SELF-CARE
--- NOTE | 2019-12-27 18:47 | P.PN ---
Subjective Progress Note Date: 12/27/19 Principal diagnosis: Neutropenia Feeling better plannng for discharge Objective - Vital Signs Vital signs: Vital Signs Temp 97.6 F 12/27/19 14:03 Pulse 69 12/27/19 14:03 Resp 16 12/27/19 14:03 BP 129/78 12/27/19 14:03 Pulse Ox 96 12/27/19 14:03 Intake & Output 12/26/19 12/27/19 12/27/19 18:59 06:59 18:59 Intake Total 400 800 Balance 400 800 Intake: Intake, IV Titration 400 800 Amount Sodium Chloride 0.9% 1, 400 800 000 ml @ 100 mls/hr IV . Q10H CAS Rx#:[id number] Oral 0 Other: Voiding Method Toilet Toilet # Voids 2 2 - Exam - Constitutional General appearance: cooperative, no acute distress - EENT Eyes: EOMI, PERRLA ENT: NA/AT, normal oropharynx - Neck Neck: normal ROM - Respiratory Respiratory: bilateral: CTA - Cardiovascular Rhythm: regular Heart sounds: normal: S1, S2 - Gastrointestinal General gastrointestinal: normal bowel sounds, soft - Integumentary Integumentary: pale - Neurologic Neurologic: CNII-XII intact - Musculoskeletal Musculoskeletal: generalized weakness, strength equal bilaterally - Psychiatric Psychiatric: A&O x's 3, appropriate affect, intact judgment & insight - Labs CBC & Chem 7: 12/27/19 05:27 12/27/19 05:27 Labs: Abnormal Lab Results - Last 24 Hours (Table) 12/27/19 12/27/19 Range/Units 05:27 05:27 Hgb 12.7 L (13.0-17.5) gm/dL Hct 38.6 L (39.0-53.0) % BUN 8.0 L (9.0-27.0) mg/dL Est GFR (CKD-EPI)NonAf 53.1 L (60.0-200.0) BUN/Creatinine Ratio 5.71 L (12.00-20.00) Ratio Total Protein 5.6 L (6.2-8.2) g/dL Albumin 3.50 L (3.80-4.90) g/dL Microbiology - Last 24 Hours (Table) 12/25/19 10:25 Blood Culture - Preliminary Blood No Growth after 48 hours Assessment and Plan (1) Normocytic anemia Narrative/Plan: Stable - If less than 7 transfuse Status: Acute Code(s): D64.9 - ANEMIA, UNSPECIFIED SNOMED Code(s): 066103582 (2) B-cell lymphoma Narrative/Plan: - Treatment [facility] - Status POst R-CHOP does not believe he received Growth factor, although either way past the allocated timeframe and adding zarxio is indicated at this point - Monitor for TLS - Stop NSAIDS unless absolutely necessary Status: Acute Code(s): C85.10 - UNSPECIFIED B-CELL LYMPHOMA, UNSPECIFIED SITE SNOMED Code(s): 831246755 (3) Diverticulitis Narrative/Plan: - Per Primary team, IV Zosyn Status: Acute Code(s): K57.92 - DVTRCLI OF INTEST, PART UNSP, W/O PERF OR ABSCESS W/O BLEED SNOMED Code(s): 915187138 (4) Neutropenia Narrative/Plan: - Secondary to Chemotherapy, Lymphoma, and acute Inflammatory process -Huynh Cultures Pending - Zarxio to increase immune support can be discontinued as WBC and ANC improved Status: Acute Code(s): D70.9 - NEUTROPENIA, UNSPECIFIED SNOMED Code(s): 594353312 Plan: Tolerating full liquid Physician Attest: I have performed the complete history and ohysical and agree w ith above dictation, dictated as a scribe
[2019-12-28] MEDS ORDERED: PANTOPRAZOLE 40 MG TABLET PO SCH (09:00)
[2019-12-29 19:41] LABS: LD Isoenzymes 1 22 % (19-38); LD Isoenzymes 2 39 % (30-43); LD Isoenzymes 3 21 % (16-26); LD Isoenzymes 4 9 % (3-12); LD Isoenzymes 5 9 % (3-14); Lactacte Dehydrogenase(LD) ISO 134 U/L (120-250)
== END 2019-12-27 17:04 | disposition home or self-care (01) | DRG 392 ==
LOC: EC 06:59 → 6NMEDSUR 09:24 → 5NMEDONC 21:48
PROVIDERS: ADMIT Internal Medicine; ATTEND Internal Medicine
DX: K57.32 Diverticulitis of large intestine without perforation or abscess without bleeding (principal); C85.10 Unspecified B-cell lymphoma, unspecified site; E89.6 Postprocedural adrenocortical (-medullary) hypofunction; M10.9 Gout, unspecified; K59.00 Constipation, unspecified; T45.1X5A Adverse effect of antineoplastic and immunosuppressive drugs, initial encounter; D64.9 Anemia, unspecified; D69.6 Thrombocytopenia, unspecified; D70.9 Neutropenia, unspecified; I10 Essential (primary) hypertension; J32.9 Chronic sinusitis, unspecified; N13.5 Crossing vessel and stricture of ureter without hydronephrosis; Z20.828 Contact with and (suspected) exposure to other viral communicable diseases; Z79.899 Other long term (current) drug therapy; Z82.49 Family history of ischemic heart disease and other diseases of the circulatory system; Z85.528 Personal history of other malignant neoplasm of kidney; Z90.5 Acquired absence of kidney; Z87.891 Personal history of nicotine dependence; Z90.89 Acquired absence of other organs; Z88.6 Allergy status to analgesic agent; Z90.49 Acquired absence of other specified parts of digestive tract
CPT/HCPCS: 36415; 74177; 80053; 81003; 82150; 83605; 83625; 83690; 83735; 84100; 84550; 85025; 85610; 85730; 87040; 87635; 96361; 96365; 96375; 99285

== ENCOUNTER 2020-02-19 10:26 | Inpatient (IN) | payer MEDICARE, OTHER ==
[2020-02-19 11:41] LABS: Appearance,Urine Clear (Clear); Bilirubin,Urine Negative (Negative); Blood,Urine Negative (Negative); Color,Urine Yellow; Glucose,Urine (UA) Negative (Negative); Ketones,Urine Negative (Negative); Leukocyte Esterase,Urine Negative (Negative); Nitrite,Urine Negative (Negative); Protein,Urine Negative (Negative); Specific Gravity,Urine 1.016 (1.001-1.035); Urobilinogen,Urine <2.0 mg/dL (<2.0)
[2020-02-19 11:57] LABS: Anisocytosis Slight; HCT 31.3 % (39.0-53.0); HGB 10.7 gm/dL (13.0-17.5); INR 0.9 (<1.2); MCHC 34.1 g/dL (31.0-37.0); MCV 85.2 fL (80.0-100.0); Mean Platelet Volume 7.6; Partial Thromboplastin Time 22.4 sec (22.0-30.0); Platelet Count 148 k/uL (150-450); Prothrombin Time 10.1 sec (9.0-12.0); RBC 3.67 m/uL (4.30-5.90)
[2020-02-19 12:00] LABS: ALT 28 U/L (4-49); AST 22 U/L (17-59); African American GFR (CKD) >90 (>60 ml/min/1.73 sqM); Albumin 3.4 g/dL (3.5-5.0); Alkaline Phosphatase 117 U/L (38-126); Anion Gap 5 mmol/L; Blood Urea Nitrogen 18 mg/dL (9-20); Calcium 9.1 mg/dL (8.4-10.2); Carbon Dioxide 26 mmol/L (22-30); Chloride 103 mmol/L (98-107); Glucose 95 mg/dL (74-99); Non-African American GFR(CKD) >90 (>60 ml/min/1.73 sqM); Sodium 134 mmol/L (137-145); Total Bilirubin 0.8 mg/dL (0.2-1.3)
[2020-02-19 12:02] LABS: WBC 0.4 k/uL (3.8-10.6)
--- NOTE | 2020-02-19 12:26 | XR ---
EXAMINATION TYPE: XR chest 2V DATE OF EXAM: 02/19/2020 COMPARISON: None INDICATION: Difficulty breathing TECHNIQUE: Frontal and lateral views of the chest are obtained. FINDINGS: The heart size is normal. The pulmonary vasculature is normal. The lungs are clear. There is a focal eventration of the right diaphragm. Port is present on the rig ht with the tip in superior vena cava region. IMPRESSION: 1. No acute pulmonary process.
--- NOTE | 2020-02-19 13:13 | ED ---
SOB HPI - General Chief Complaint: Shortness of Breath Stated Complaint: Sent by PCP Time Seen by Provider: 02/19/20 10:47 Source: patient Mode of arrival: ambulatory Limitations: no limitations - History of Present Illness Initial Comments: Patient is a 64-year-old male with past medical history of B-cell lymphoma, currently on his fourth round of chemotherapy who presents to emergency room with reported shortness of breath. He states that he last received his chemo on . He received that at [facility]. Patient has a previous history of renal cell cancer, stage IV for which she is in remission. He continued to follow with his same oncologist. States he had a PET scan recently which showed good results with the chemo. Shortly after his infusion he began having exertional shortness of breath. States he can't do small tasks without having to sit down. Denies previous history of underlying lung conditions. Does not use oxygen at home. Denies a cough, fevers or chills. He did call his primary care doctor who recommended that he come to the hospital to be evaluated for a blood clot. Patient reports he's also been having left lower quadrant abdominal pain. This pain is consistent with his previous history of diverticulitis. States he's been hospitalized previously for his diverticulitis. He is due for a Neulasta shot on Tuesday. Sees Dr. Chinchilla in [place]. Denies history of DVT or PE. No lower extremity swelling. No covid exposure. 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, precipitating or modifying factors - Related Data Home Medications Medication Instructions Recorded Confirmed Allopurinol [Zyloprim] 100 mg PO DAILY 12/25/19 02/26/20 Torsemide [Demadex] 30 mg PO DAILY 12/25/19 02/26/20 lisinopriL 40 mg PO DAILY 12/25/19 02/26/20 Atorvastatin [Lipitor] 20 mg PO HS 02/26/20 02/26/20 Allergies Allergy/AdvReac Type Severity Reaction Status Date / Time acetaminophen [From Tylenol] Allergy Anaphylaxis Verified 02/26/20 11:16 adhesive tape Allergy BLISTERS Verified 02/26/20 11:16 Review of Systems ROS Statement: Those systems with pertinent positive or pertinent negative responses have been documented in the HPI. ROS Other: All systems not noted in ROS Statement are negative. 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, [facility], renal cancer Left kidney stage IV Mar 2004, Gout History of Any Multi-Drug Resistant Organisms: None Reported Past Surgical History: Adenoidectomy, Appendectomy, Hernia Repair, Tonsillectomy Additional Past Surgical History / Comment(s): left kidney removed Past Anesthesia/Blood Transfusion Reactions: No Reported Reaction Past Psychological History: No Psychological Hx Reported Smoking Status: Former smoker Past Alcohol Use History: Occasional Past Drug Use History: None Reported - Past Family History Father Family Medical History: Congestive Heart Failure (CHF) Mother Additional Family Medical History / Comment(s): old age General Exam Limitations: no limitations General appearance: alert, in no apparent distress Head exam: Present: atraumatic, normocephalic, normal inspection Eye exam: Present: normal appearance, PERRL, EOMI. Absent: scleral icterus, conjunctival injection, periorbital swelling ENT exam: Present: normal exam, mucous membranes moist Neck exam: Present: normal inspection. Absent: tenderness, meningismus, lymphadenopathy Respiratory exam: Present: normal lung sounds bilaterally. Absent: respiratory distress, wheezes, rales, rhonchi, stridor Cardiovascular Exam: Present: normal rhythm, tachycardia, normal heart sounds. Absent: systolic murmur, diastolic murmur, rubs, gallop, clicks GI/Abdominal exam: Present: soft, tenderness (llq), normal bowel sounds. Absent: distended, guarding, rebound, rigid Extremities exam: Present: normal inspection, full ROM, normal capillary refill. Absent: tenderness, pedal edema, joint swelling, calf tenderness Back exam: Present: normal inspection Neurological exam: Present: alert, oriented X3, CN II-XII intact Psychiatric exam: Present: normal affect, normal mood Skin exam: Present: warm, dry, intact, normal color. Absent: rash Course Vital Signs 02/19/20 02/19/20 02/19/20 10:41 11:36 12:25 Temperature 100 F H Pulse Rate 111 H 114 H 102 H Respiratory 18 18 18 Rate Blood Pressure 125/62 113/73 127/75 O2 Sat by Pulse 96 96 97 Oximetry 02/19/20 02/19/20 13:51 16:32 Temperature Pulse Rate 95 98 Respiratory 18 18 Rate Blood Pressure 120/83 116/77 O2 Sat by Pulse 98 99 Oximetry Medical Decision Making - Medical Decision Making Upon arrival patient is placed into room 1. A thorough history and physical exam was performed. Patient does have a high heart rate. Peripheral IV is established and the patient is started on IV fluids. Laboratory studies were conducted. Patient is pancytopenic with a white blood cell count of 0.4. Hemoglobin 10.7. Platelets 148. D-dimer is elevated at 0.94. Troponin is 0.013. Urinalysis negative. Influenza and Covid is negative. Chest x-ray demonstrates no acute cardiopulmonary process. Because of the patient's resistant tachycardia with shortness of breath he is sent for a PE study. This demonstrates no evidence for pulmonary embolism. COPD with mild emphysema and a possible superimposed acute bronchitis. Patient was given a dose of steroids for the bronchitis. A CT of the abdomen and pelvis was also performed because the patient's history of diverticulitis with does demonstrate mild to moderate inflammation of the sigmoid colon consistent with acute diverticulitis. The results are discussed the patient. He has required hospital for his diverticulitis before. Because of this persistent high heart rate I will admit the patient. Discussed case with Dr. Farley who accepted admission. Will place Dr. Chinchilla and Dr. Webber on consult. Patient agreed to the treatment plan and is awaiting bed - Lab Data Result diagrams: 02/21/20 05:19 02/21/20 05:19 Lab Results 02/19/20 02/19/20 02/19/20 Range/Units 11:27 11:27 11:27 WBC 0.4 L* (3.8-10.6) k/uL RBC 3.67 L (4.30-5.90) m/uL Hgb 10.7 L (13.0-17.5) gm/dL Hct 31.3 L (39.0-53.0) % MCV 85.2 (80.0-100.0) fL MCH 29.0 (25.0-35.0) pg MCHC 34.1 (31.0-37.0) g/dL RDW 16.0 H (11.5-15.5) % Plt Count 148 L (150-450) k/uL MPV 7.6 Neutrophils % (Manual) % Band Neuts % (Manual) % Lymphocytes % (Manual) % Monocytes % (Manual) % Promyelocytes % % Blast Cells % % Neutrophils # (Manual) (1.3-7.7) k/uL Lymphocytes # (Manual) (1.0-4.8) k/uL Monocytes # (Manual) (0-1.0) k/uL Promyelocytes # (Man) (0) k/uL Blast Cells # (Man) (0) k/uL Nucleated RBCs (0-0) /100 WBC Differential Comment Manual Slide Review Performed Poikilocytosis (manual Anisocytosis Slight Anisocytosis (manual) PT 10.1 (9.0-12.0) sec INR 0.9 (<1.2) APTT 22.4 (22.0-30.0) sec D-Dimer 0.94 H (<0.60) mg/L FEU Sodium (137-145) mmol/L Potassium (3.5-5.1) mmol/L Chloride (98-107) mmol/L Carbon Dioxide (22-30) mmol/L Anion Gap mmol/L BUN (9-20) mg/dL Creatinine (0.66-1.25) mg/dL Est GFR (CKD-EPI)AfAm (>60 ml/min/1.73 sqM) Est GFR (CKD-EPI)NonAf (>60 ml/min/1.73 sqM) BUN/Creatinine Ratio (12.00-20.00) Ratio Glucose (74-99) mg/dL Plasma Lactic Acid Tyler (0.7-2.0) mmol/L Calcium (8.4-10.2) mg/dL Magnesium (1.5-2.4) mg/dL Total Bilirubin (0.2-1.3) mg/dL AST (17-59) U/L ALT (4-49) U/L Alkaline Phosphatase (38-126) U/L Troponin I (0.000-0.034) ng/mL NT-Pro-B Natriuret Pep pg/mL Total Protein (6.3-8.2) g/dL Albumin (3.5-5.0) g/dL Globulin (1.6-3.3) g/dL Albumin/Globulin Ratio (1.60-3.17) g/dL Urine Color Yellow Urine Appearance Clear (Clear) Urine pH 6.0 (5.0-8.0) Ur Specific [place] 1.016 (1.001-1.035) Urine Protein Negative (Negative) Urine Glucose (UA) Negative (Negative) Urine Ketones Negative (Negative) Urine Blood Negative (Negative) Urine Nitrite Negative (Negative) Urine Bilirubin Negative (Negative) Urine Urobilinogen <2.0 (<2.0) mg/dL Ur Leukocyte Esterase Negative (Negative) Influenza Type A (PCR) (Not Detectd) Influenza Type B (PCR) (Not Detectd) RSV (PCR) (Not Detectd) SARS-CoV-2 (PCR) (Not Detectd) 02/19/20 02/19/20 02/19/20 Range/Units 11:27 11:27 11:27 WBC (3.8-10.6) k/uL RBC (4.30-5.90) m/uL Hgb (13.0-17.5) gm/dL Hct (39.0-53.0) % MCV (80.0-100.0) fL MCH (25.0-35.0) pg MCHC (31.0-37.0) g/dL RDW (11.5-15.5) % Plt Count (150-450) k/uL MPV Neutrophils % (Manual) % Band Neuts % (Manual) % Lymphocytes % (Manual) % Monocytes % (Manual) % Promyelocytes % % Blast Cells % % Neutrophils # (Manual) (1.3-7.7) k/uL Lymphocytes # (Manual) (1.0-4.8) k/uL Monocytes # (Manual) (0-1.0) k/uL Promyelocytes # (Man) (0) k/uL Blast Cells # (Man) (0) k/uL Nucleated RBCs (0-0) /100 WBC Differential Comment Manual Slide Review Poikilocytosis (manual Anisocytosis Anisocytosis (manual) PT (9.0-12.0) sec INR (<1.2) APTT (22.0-30.0) sec D-Dimer (<0.60) mg/L FEU Sodium 134 L (137-145) mmol/L Potassium 4.0 (3.5-5.1) mmol/L Chloride 103 (98-107) mmol/L Carbon Dioxide 26 (22-30) mmol/L Anion Gap 5 mmol/L BUN 18 (9-20) mg/dL Creatinine 0.79 (0.66-1.25) mg/dL Est GFR (CKD-EPI)AfAm >90 (>60 ml/min/1.73 sqM) Est GFR (CKD-EPI)NonAf >90 (>60 ml/min/1.73 sqM) BUN/Creatinine Ratio (12.00-20.00) Ratio Glucose 95 (74-99) mg/dL Plasma Lactic Acid Tyler 1.4 (0.7-2.0) mmol/L Calcium 9.1 (8.4-10.2) mg/dL Magnesium (1.5-2.4) mg/dL Total Bilirubin 0.8 (0.2-1.3) mg/dL AST 22 (17-59) U/L ALT 28 (4-49) U/L Alkaline Phosphatase 117 (38-126) U/L Troponin I 0.013 (0.000-0.034) ng/mL NT-Pro-B Natriuret Pep pg/mL Total Protein 6.0 L (6.3-8.2) g/dL Albumin 3.4 L (3.5-5.0) g/dL Globulin (1.6-3.3) g/dL Albumin/Globulin Ratio (1.60-3.17) g/dL Urine Color Urine Appearance (Clear) Urine pH (5.0-8.0) Ur Specific [place] (1.001-1.035) Urine Protein (Negative) Urine Glucose (UA) (Negative) Urine Ketones (Negative) Urine Blood (Negative) Urine Nitrite (Negative) Urine Bilirubin (Negative) Urine Urobilinogen (<2.0) mg/dL Ur Leukocyte Esterase (Negative) Influenza Type A (PCR) (Not Detectd) Influenza Type B (PCR) (Not Detectd) RSV (PCR) (Not Detectd) SARS-CoV-2 (PCR) (Not Detectd) 02/19/20 02/19/20 02/20/20 Range/Units 11:27 11:27 06:37 WBC 1.2 L* (3.8-10.6) k/uL RBC 3.55 L (4.30-5.90) m/uL Hgb 10.3 L (13.0-17.5) gm/dL Hct 31.0 L (39.0-53.0) % MCV 87.3 (80.0-100.0) fL MCH 29.1 (25.0-35.0) pg MCHC 33.3 (31.0-37.0) g/dL RDW 15.9 H (11.5-15.5) % Plt Count 140 L (150-450) k/uL MPV 8.8 Neutrophils % (Manual) 44 % Band Neuts % (Manual) 4 % Lymphocytes % (Manual) 16 % Monocytes % (Manual) 34 % Promyelocytes % 1 % Blast Cells % 1 H* % Neutrophils # (Manual) 0.50 L (1.3-7.7) k/uL Lymphocytes # (Manual) 0.19 L (1.0-4.8) k/uL Monocytes # (Manual) 0.41 (0-1.0) k/uL Promyelocytes # (Man) 0.01 H (0) k/uL Blast Cells # (Man) 0.01 H (0) k/uL Nucleated RBCs 0 (0-0) /100 WBC Differential Comment Manual Slide Review Performed Poikilocytosis (manual Present Anisocytosis Anisocytosis (manual) Present PT (9.0-12.0) sec INR (<1.2) APTT (22.0-30.0) sec D-Dimer (<0.60) mg/L FEU Sodium (137-145) mmol/L Potassium (3.5-5.1) mmol/L Chloride (98-107) mmol/L Carbon Dioxide (22-30) mmol/L Anion Gap mmol/L BUN (9-20) mg/dL Creatinine (0.66-1.25) mg/dL Est GFR (CKD-EPI)AfAm (>60 ml/min/1.73 sqM) Est GFR (CKD-EPI)NonAf (>60 ml/min/1.73 sqM) BUN/Creatinine Ratio (12.00-20.00) Ratio Glucose (74-99) mg/dL Plasma Lactic Acid Tyler (0.7-2.0) mmol/L Calcium (8.4-10.2) mg/dL Magnesium (1.5-2.4) mg/dL Total Bilirubin (0.2-1.3) mg/dL AST (17-59) U/L ALT (4-49) U/L Alkaline Phosphatase (38-126) U/L Troponin I (0.000-0.034) ng/mL NT-Pro-B Natriuret Pep 137 pg/mL Total Protein (6.3-8.2) g/dL Albumin (3.5-5.0) g/dL Globulin (1.6-3.3) g/dL Albumin/Globulin Ratio (1.60-3.17) g/dL Urine Color Urine Appearance (Clear) Urine pH (5.0-8.0) Ur Specific [place] (1.001-1.035) Urine Protein (Negative) Urine Glucose (UA) (Negative) Urine Ketones (Negative) Urine Blood (Negative) Urine Nitrite (Negative) Urine Bilirubin (Negative) Urine Urobilinogen (<2.0) mg/dL Ur Leukocyte Esterase (Negative) Influenza Type A (PCR) Not Detected (Not Detectd) Influenza Type B (PCR) Not Detected (Not Detectd) RSV (PCR) Not Detected (Not Detectd) SARS-CoV-2 (PCR) Not Detected (Not Detectd) 02/20/20 Range/Units 06:37 WBC (3.8-10.6) k/uL RBC (4.30-5.90) m/uL Hgb (13.0-17.5) gm/dL Hct (39.0-53.0) % MCV (80.0-100.0) fL MCH (25.0-35.0) pg MCHC (31.0-37.0) g/dL RDW (11.5-15.5) % Plt Count (150-450) k/uL MPV Neutrophils % (Manual) % Band Neuts % (Manual) % Lymphocytes % (Manual) % Monocytes % (Manual) % Promyelocytes % % Blast Cells % % Neutrophils # (Manual) (1.3-7.7) k/uL Lymphocytes # (Manual) (1.0-4.8) k/uL Monocytes # (Manual) (0-1.0) k/uL Promyelocytes # (Man) (0) k/uL Blast Cells # (Man) (0) k/uL Nucleated RBCs (0-0) /100 WBC Differential Comment Manual Slide Review Poikilocytosis (manual Anisocytosis Anisocytosis (manual) PT (9.0-12.0) sec INR (<1.2) APTT (22.0-30.0) sec D-Dimer (<0.60) mg/L FEU Sodium 141 (137-145) mmol/L Potassium 4.7 (3.5-5.1) mmol/L Chloride 107 (98-107) mmol/L Carbon Dioxide 25.4 (22-30) mmol/L Anion Gap 8.60 mmol/L BUN 19.0 (9-20) mg/dL Creatinine 0.9 (0.66-1.25) mg/dL Est GFR (CKD-EPI)AfAm 105.0 (>60 ml/min/1.73 sqM) Est GFR (CKD-EPI)NonAf 90.6 (>60 ml/min/1.73 sqM) BUN/Creatinine Ratio 21.11 H (12.00-20.00) Ratio Glucose 141 H (74-99) mg/dL Plasma Lactic Acid Tyler (0.7-2.0) mmol/L Calcium 9.0 (8.4-10.2) mg/dL Magnesium 2.3 (1.5-2.4) mg/dL Total Bilirubin 0.4 (0.2-1.3) mg/dL AST 18 (17-59) U/L ALT 26 (4-49) U/L Alkaline Phosphatase 110 (38-126) U/L Troponin I (0.000-0.034) ng/mL NT-Pro-B Natriuret Pep pg/mL Total Protein 5.6 L (6.3-8.2) g/dL Albumin 3.80 (3.5-5.0) g/dL Globulin 1.8 (1.6-3.3) g/dL Albumin/Globulin Ratio 2.11 (1.60-3.17) g/dL Urine Color Urine Appearance (Clear) Urine pH (5.0-8.0) Ur Specific [place] (1.001-1.035) Urine Protein (Negative) Urine Glucose (UA) (Negative) Urine Ketones (Negative) Urine Blood (Negative) Urine Nitrite (Negative) Urine Bilirubin (Negative) Urine Urobilinogen (<2.0) mg/dL Ur Leukocyte Esterase (Negative) Influenza Type A (PCR) (Not Detectd) Influenza Type B (PCR) (Not Detectd) RSV (PCR) (Not Detectd) SARS-CoV-2 (PCR) (Not Detectd) - EKG Data EKG Comments: EKG demonstrates a sinus tachycardia with a ventricular rate of 110. GA interval 126. QRS 98. QTC of 487. S1Q3T3. No acute ST segment elevations or depressions Disposition Clinical Impression: Neutropenia, B-cell lymphoma, Diverticulitis, Shortness of breath, Bronchitis Disposition: ADMITTED IP TO THIS [facility] Condition: Stable Is patient prescribed a controlled substance at d/c from ED?: No Decision to Admit Reason: Admit from EC Decision Date: 02/19/20 Decision Time: 14:30
--- NOTE | 2020-02-19 14:09 | CT ---
EXAMINATION TYPE: CT chest angio for PE DATE OF EXAM: 02/19/2020 COMPARISON: None HISTORY: 64-year-old male active chemotherapy, SOB, rule out pulmonary embolism TECHNIQUE: Contiguous axial scanning of the chest performed with IV Contrast, patient injected with 1 00 mL of Isovue 370. Coronal/sagittal MIP reconstructions performed. CT DLP: 537.4 mGycm Automated exposure control for dose reduction was used. FINDINGS: Heart normal size with trace anterior basilar pericardial fluid. No flattening of the interventricula r septum or reflux of contrast into the hepatic veins. Right anterior chest wall injection port with catheter tip at the cavoatrial junction. Aorta normal caliber with conventional arch vessel branching anatomy. No thoracic lymphadenopathy by CT size criteria. Satisfactory opacification of the pulmonary arterial system mild breathing motion artifacts. No defin ite bony embolus. Mild centrilobular emphysema. [id number] diffuse bronchial wall thickening. No kal consolidation or pleural effusion. Abdomen reported separately. Bones: Bridging anterior endplate spondylosis mid and lower thoracic spine compatible with dish. No o sseous destructive process. IMPRESSION: 1. NO EVIDENCE FOR PULMONARY EMBOLUS. 2. COPD WITH MILD EMPHYSEMA. THERE IS EITHER A PROMINENT COMPONENT OF CHRONIC BRONCHITIS OF SUPERIMPO SED ACUTE BRONCHITIS.
--- NOTE | 2020-02-19 14:16 | CT ---
EXAMINATION TYPE: CT abdomen pelvis w con DATE OF EXAM: 02/19/2020 COMPARISON: 12/25/2019 HISTORY: 64 year-old male abdominal pain. History of diverticulitis. History of B-cell lymphoma and r enal cell carcinoma. Status post left nephrectomy. TECHNIQUE: Contiguous axial scanning of the abdomen and pelvis following administration of 100 ml Iso nata 300 IV contrast. Delayed images through the kidneys and coronal/sagittal reconstructions perform ed. CT DLP: 1063 mGycm Automated exposure control for dose reduction was used. FINDINGS: Chest reported separately. No focal liver lesion or biliary ductal dilatation. Portal venous system is patent. Gallbladder, spleen, pancreas show no gross abnormality. Appropriate uptake and excretion of contrast from the right kidney. Diffuse thickening of the right adrenal gland is unchanged. Left adrenal gland and left kidney are surgically absent. The left nephrectomy bed remains clear. Post surgical change along the anterior abdominal wall with small fatty incisional hernias measuring up to 3.5 cm wide. No dilated small bowel, free fluid, or free air. No mesenteric or retroperitoneal lymphadenopathy. Th e previous enlarged aortocaval retroperitoneal lymph node now measures 8 mm. No significant stool burden. There is sigmoid diverticulosis. There is mild to moderate focal wall th ickening with moderate inflammatory fat stranding at the proximal sigmoid colon. Moderate circumference of bladder wall thickening. No abnormal fluid collection in the pelvis or pelv ic lymphadenopathy seen. Bones: Facet arthropathy mid to lower lumbar spine. Dictation the lower thoracic spine. Grade 1 anter olisthesis L4-L5. IMPRESSION: 1. EXAM POSITIVE FOR RECURRENT ACUTE DIVERTICULITIS ALONG THE PROXIMAL SIGMOID WITH MILD TO MODERATE INFLAMMATION, SIMILAR APPEARANCE COMPARED TO 12/25/2019. NO ABSCESS OR FREE AIR. 2. THE PREVIOUSLY SEEN, ENLARGED RETROPERITONEAL LYMPH NODES HAVE IMPROVED. 3. REDEMONSTRATED PRIOR LEFT NEPHRECTOMY AND ADRENALECTOMY.
[2020-02-19] MEDS ORDERED: cefTRIAXone IN SWFI 1,000 MG/10 ML SYRINGE IVP STA (14:30)
[2020-02-19] MEDS ORDERED: NALOXONE 0.4 MG/ML 1 ML VIAL IV PRN ×2 (15:13→16:14)
[2020-02-19] MEDS ORDERED: methylPREDNISolone SOD SUCCI 125 MG/2 ML VIAL IV STA (15:15)
[2020-02-19] MEDS ORDERED: metroNIDAZOLE-NS PMX 500 MG in SALINE 1 100ML.BAG IVPB ONE (16:00)
[2020-02-19] MEDS ORDERED: ONDANSETRON 4 MG/2 ML VIAL IVP PRN (16:14)
[2020-02-19] MEDS ORDERED: MELATONIN 3 MG TABLET PO PRN (16:14)
[2020-02-19] MEDS ORDERED: bisacodyL 5 MG TABLET.DR PO PRN (16:14)
[2020-02-19] MEDS ORDERED: MORPHINE SULFATE 4 MG/ML SYRINGE IV PRN (16:14)
[2020-02-19] MEDS ORDERED: IPRATROPIUM-ALBUTEROL 3 ML NEB INHALATION PRN (16:29)
[2020-02-19] MEDS ORDERED: BENZONATATE 100 MG CAP PO PRN (16:31)
[2020-02-19] MEDS: SODIUM CHLORIDE 0.9% 1,000 ML IV SCH (16:36)
--- NOTE | 2020-02-19 17:19 | P.HPIM ---
<Joel Nieto - Last Filed: 02/19/20 16:35> History of Present Illness H&P Date: 02/19/20 Chief Complaint: shortness of breath and abdominal pain History of presenting illness: Patient is a 64-year-old male with a past medical history of HTN, COPD not home oxygen dependent (reports history of tobacco use smoking greater than one pack of cigarettes daily 30 years), diverticulosis, renal carcinoma resulting in left sided nephrectomy in remission 15 years, B-cell lymphoma currently undergoing his fourth round of chemotherapy with last dose being administered on 02/12/[address] Chinchilla. Pt reported to [facility]'s emergency department with a chief complaint of shortness of breath and abdominal pain. Patient reports having shortness of breath with exertion 1 week status post his last chemotherapy treatment. Patient reports this shortness of breath seemed to progress over the past week and he is now unable to walk to the bathroom without feeling significantly winded. In addition to this pt reports that he began noticing some pain in his left lower quadrant of his abdomen yesterday evening and has had persistent nausea x one week (which is typically common after chemo but usually improves after a few days). Pt states that he is very careful about going around other people because he knows he is neutropenic since his chemotherapy began. Patient denies having anyexposure to known ill contacts, known fevers,chills, diaphoresis headache, lightheadedness, dizziness, changes in vision or hearing, chest pain or palpitations, cough, congestion, sore throat or dysphasia, episodes of vomiting,diarrhea, constipation, melena, hematochezia, changes in her difficulties with urinary function, or having any numbness/tingling/weaknessswelling in extremities.patient states he is due for his next Neulasta injection on Tuesday. ED course: Patient was seen in place evaluated in the emergency department resulting in diagnosis of acute diverticulitis requiring admission to observation unit for continuous close medical management. Labs:lactate normal findings at 1.4. CBC a revealing pancytopenia with WBC, 0.4, hemoglobin 10.7, and platelet count of 148. Coags showing no significant abnormalities. D-dimer elevated at 0.94. BMP revealing a mild hyponatremia with sodium of 134, otherwise normal findings. Urinalysis negative for blood,proteins, ketones, or infection. Influenza A and B PCR negative. COVID-19 PCR negative. Troponin 0.013. EKG revealing sinus tachycardia at 110 bpmWith no noted T-wave abnormalities and no ST depression or elevation. CT abdomen and pelvis revealing recurrent acute diverticulitis along the proximal sigmoid with mild to moderate inflammation, similar appearance as com pared to 12/25/19. No abscess or free air. CT PE Negative for pulmonary emboli. Revealing COPD with mild emphysema with a prominent component of chronic bronchitis and possible superimposed acute b ronchitis. Chest x-ray negative for acute cardiopulmonary process. medications administered in ED include Rocephin 1 g IVPB and Solu-Medrol 125 mg IVP. Assessment: Review of systems: Pertinent positives and negatives were discussed in HPI. A complete review of systems was performed and all other systems are negative. Physical exam: General: non toxic, no distress, appears at stated age Derm: slightly pale appearance, skin is warm and dry Head: atraumatic, normocephalic, symmetric Eyes: EOMI, no lid lag, anicteric sclera Mouth: no lip lesion, mucus membranes moist Cardiovascular: S1S2 reg, no murmur, no lower extremity edema, positive posterior tibial pulses bilaterally. Cap refill < 2 seconds Lungs: CTA bilateral, no rhonchi, no rales, no wheezes and no accessory muscle use Abdominal: Obese and soft, Tenderness to palpation in LLQ, however no guarding, no rebound tenderness and no appreciable organomegaly Ext: no gross muscle atrophy, no edema, no contractures Neuro: CN II-XII grossly intact, no focal neuro deficits Psych: Alert, oriented, appropriate affect Plan of care: Dyspnea likely multifactorial due to sepsis and deconditioning from chemotherapy -management as below Sepsis -likely secondary to acute diverticulitis -Leukopenia and tachycardia -IVF -LA WNL and BP normal so no need for fluid bolus. Acute diverticulitis -GI consult to Dr. Webber IV antibiotic cefepime and Flagyl Nothing by mouth with the exception of ice chips and sips of water with medications. Continued gentle hydration with 0.9% normal saline at 100mL's per hour Symptomatic care and pain management with Zofran for nausea and/or vomiting and morphine for severe pain. COPD Duo nebs as needed for wheezing and/or shortness of breath. Oxygenation as needed to maintain SpO2 equal to or greater than 92%. Incentive spirometry. pulse oximetry every 4 hours. Pancytopenia CBC a revealing pancytopenia with WBC, 0.4, hemoglobin 10.7, and platelet count of 148. Likely secondary tocurrently undergoing chemotherapy treatment due to B-cell ly mphoma. Continue to monitor closely with repeat a.m. labs. Neutropenic precautions. Consult the Heme/Onc Dr. Chinchilla. B-cell lymphoma Consult the Heme/Onc Dr. Chinchilla. Continued close monitoring with repeat a.m. labs. Neutropenic precautions Hypertension Monitor vital signs and continue daily medication management. Code status: Full Code DVT prophylaxis: SCDs, no anticoagulation due to thrombocytopenia. Home medications reviewed and ordered. Pt does not have a DPOA, but would like his to make decisions in the event he cannot. A total of > 50 minutes spent on the care of this complex patient more than 50% of the time was spent in counseling and care coordination. 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, first chemo treatment 12/12 at [facility],, renal cancer Left kidney stage IV Mar 2004, Gout History of Any Multi-Drug Resistant Organisms: None Reported Past Surgical History: Adenoidectomy, Appendectomy, Hernia Repair, Tonsillectomy Additional Past Surgical History / Comment(s): left kidney removed Past Anesthesia/Blood Transfusion Reactions: No Reported Reaction Past Psychological History: No Psychological Hx Reported Smoking Status: Former smoker Past Alcohol Use History: Occasional Past Drug Use History: None Reported - Past Family History Father Family Medical History: Congestive Heart Failure (CHF) Mother Additional Family Medical History / Comment(s): old age Medications and Allergies Home Medications Medication Instructions Recorded Confirmed Type Allopurinol [Zyloprim] 100 mg PO DAILY 12/25/19 02/19/20 History Carvedilol [Coreg] 6.25 mg PO BID 12/25/19 02/19/20 History Multivitamin [Multivitamins Adult 1 tablet PO DAILY 12/25/19 02/19/20 History Gummies] Torsemide [Demadex] 30 mg PO DAILY 12/25/19 02/19/20 History amLODIPine [Norvasc] 10 mg PO DAILY 12/25/19 02/19/20 History lisinopriL 40 mg PO DAILY 12/25/19 02/19/20 History Prochlorperazine [Compazine] 10 mg PO Q6H PRN 02/19/20 02/19/20 History ondansetron HCL [Zofran] 8 mg PO Q8H PRN 02/19/20 02/19/20 History Allergies Allergy/AdvReac Type Severity Reaction Status Date / Time acetaminophen [From Tylenol] Allergy Anaphylaxis Verified 02/19/20 12:31 adhesive tape Allergy BLISTERS Verified 02/19/20 12:31 Physical Exam Vitals: Vital Signs Temp Pulse Resp BP Pulse Ox 02/19/20 13:51 95 18 120/83 98 02/19/20 12:25 102 H 18 127/75 97 02/19/20 11:36 114 H 18 113/73 96 02/19/20 10:41 100 F H 111 H 18 125/62 96 Intake and Output 02/19/20 02/19/20 02/19/20 06:59 14:59 22:59 Other: Weight 107.501 kg Results CBC & Chem 7: 02/19/20 11:27 02/19/20 11:27 Labs: Abnormal Lab Results - Last 24 Hours (Table) 02/19/20 02/19/20 02/19/20 Range/Units 11:27 11:27 11:27 WBC 0.4 L* (3.8-10.6) k/uL RBC 3.67 L (4.30-5.90) m/uL Hgb 10.7 L (13.0-17.5) gm/dL Hct 31.3 L (39.0-53.0) % RDW 16.0 H (11.5-15.5) % Plt Count 148 L (150-450) k/uL D-Dimer 0.94 H (<0.60) mg/L FEU Sodium 134 L (137-145) mmol/L Total Protein 6.0 L (6.3-8.2) g/dL Albumin 3.4 L (3.5-5.0) g/dL <Sabrina Farley - Last Filed: 02/19/20 17:33> History of Present Illness Patient seen and examined independently. Patient was also seen by Joel Nieto NP and case was discussed. I am in agreement with subjective, physical exam, assessment and plan as written above and amended below. 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 No significant issues noted on an osteopathic structural exam other than those noted in the History and Physical/Consult. Vitals: Vital Signs Temp Pulse Resp BP Pulse Ox 02/19/20 16:32 98 18 116/77 99 02/19/20 13:51 95 18 120/83 98 02/19/20 12:25 102 H 18 127/75 97 02/19/20 11:36 114 H 18 113/73 96 02/19/20 10:41 100 F H 111 H 18 125/62 96 Intake and Output 02/19/20 02/19/20 02/19/20 06:59 14:59 22:59 Other: Weight 107.501 kg Results CBC & Chem 7: 02/19/20 11:27 02/19/20 11:27 Labs: Abnormal Lab Results - Last 24 Hours (Table) 02/19/20 02/19/20 02/19/20 Range/Units 11:27 11:27 11:27 WBC 0.4 L* (3.8-10.6) k/uL RBC 3.67 L (4.30-5.90) m/uL Hgb 10.7 L (13.0-17.5) gm/dL Hct 31.3 L (39.0-53.0) % RDW 16.0 H (11.5-15.5) % Plt Count 148 L (150-450) k/uL D-Dimer 0.94 H (<0.60) mg/L FEU Sodium 134 L (137-145) mmol/L Total Protein 6.0 L (6.3-8.2) g/dL Albumin 3.4 L (3.5-5.0) g/dL
[2020-02-19] MEDS: carvediloL 6.25 MG TAB PO SCH (22:14)
[2020-02-20] MEDS: metroNIDAZOLE-NS PMX 500 MG in SALINE 1 100ML.BAG IVPB SCH ×4 (00:10→23:51)
[2020-02-20] MEDS: SODIUM CHLORIDE 0.9% 1,000 ML IV SCH ×3 (00:12→18:18)
[2020-02-20] MEDS: CEFEPIME 2 GM in SODIUM CHLORIDE 0.9% 100 ML IVPB SCH ×3 (01:29→16:57)
[2020-02-20 07:01] LABS: HGB 10.3 gm/dL (13.0-17.5); MCH 29.1 pg (25.0-35.0); MCHC 33.3 g/dL (31.0-37.0); MCV 87.3 fL (80.0-100.0); Mean Platelet Volume 8.8; Platelet Count 140 k/uL (150-450); RBC 3.55 m/uL (4.30-5.90); RDW 15.9 % (11.5-15.5)
[2020-02-20 07:12] LABS: WBC 1.2 k/uL (3.8-10.6)
[2020-02-20] MEDS: allopurinoL 100 MG TAB PO SCH (07:24)
[2020-02-20] MEDS: amLODIPine 10 MG TAB PO SCH (07:25)
[2020-02-20] MEDS: carvediloL 6.25 MG TAB PO SCH ×2 (07:25→20:56)
[2020-02-20] MEDS: lisinopriL 20 MG TAB PO SCH (07:25)
[2020-02-20 08:14] LABS: Band Neutrophils % 4 %; Lymphocytes # (M) 0.19 k/uL (1.0-4.8); Monocytes # (M) 0.41 k/uL (0-1.0); Neutrophils % (M) 44 %; Promyelocytes # (M) 0.01 k/uL (0); Promyelocytes % 1 %
[2020-02-20 08:15] LABS: Blast Cells # (M) 0.01 k/uL (0); Nucleated Red Blood Cells 0 /100 WBC (0-0); Total Cells Counted 100
[2020-02-20 08:17] LABS: Anisocytosis (M) Present; Poikilocytosis (M) Present
--- NOTE | 2020-02-20 09:48 | P.PN ---
<Joel Nieto - Last Filed: 02/20/20 10:48> Subjective Progress Note Date: 02/20/20 Principal diagnosis: Acute diverticulitis Chief Complaint: Shortness of breath and abdominal pain History of presenting illness: Patient is a 64-year-old male with a past medical history of HTN, COPD not home oxygen dependent (reports history of tobacco use smoking greater than one pack of cigarettes daily 30 years), diverticulosis, renal carcinoma resulting in left sided nephrectomy in remission 15 years, B-cell lymphoma currently undergoing his fourth round of chemotherapy with last dose being administered on 02/12/[address] Chinchilla. Pt reported to [facility]'s emergency department with a chief complaint of shortness of breath and abdominal pain. Patient reports having shortness of breath with exertion 1 week status post his last chemotherapy treatment. Patient reports this shortness of breath seemed to progress over the past week and he is now unable to walk to the bathroom without feeling significantly winded. In addition to this pt reports that he began noticing some pain in his left lower quadrant of his abdomen yesterday evening and has had persistent nausea x one week (which is typically common after chemo but usually improves after a few days). Pt states that he is very careful about going around other people because he knows he is neutropenic since his chemotherapy began. Patient denies having anyexposure to known ill contacts, known fevers,chills, diaphoresis headache, lightheadedness, dizziness, changes in vision or hearing, chest pain or palpitations, cough, congestion, sore throat or dysphasia, episodes of vomiting,diarrhea, constipation, melena, hematochezia, changes in her difficulties with urinary function, or having any numbness/tingling/weaknessswelling in extremities.patient states he is due for his next Neulasta injection on Tuesday. 02/19/20: Patient was seen in place evaluated in the emergency department resulting in diagnosis of acute diverticulitis requiring admission to observation unit for continuous close medical management. Labs:lactate normal findings at 1.4. CBC a revealing pancytopenia with WBC, 0.4, hemoglobin 10.7, and platelet count of 148. Coags showing no significant abnormalities. D-dimer elevated at 0.94. BMP revealing a mild hyponatremia with sodium of 134, otherwise normal findings. Urinalysis negative for blood,proteins, ketones, or infection. Influenza A and B PCR negative. COVID-19 PCR negative. Troponin 0.013. EKG revealing sinus tachycardia at 110 bpmWith no noted T-wave abnormalities and no ST depression or elevation. CT abdomen and pelvis revealing recurrent acute diverticulitis along the proximal sigmoid with mild to moderate inflammation, similar appearance as compared to 12/25/19. No abscess or free air. CT PE Negative for pulmonary emboli. Revealing COPD with mild emphysema with a prominent component of chronic bronchitis and possible superimposed acute bronchitis. Chest x-ray negative for acute cardiopulmonary process. 02/19/19: Patient was seen and fully evaluated at the bedside. He is awake and alert and oriented 4 this morning reporting significant improvement in his left lower quadrant pain and states his shortness of breath is resolved. Patient reports pain remains to left lower quadrant in which he currently rates 2/10 at this time. Patient has been tolerating nothing by mouth with the exception of ice chips and reports having 4 episodes of diarrhea last night in which he de nies any hematochezia or melena. Labs drawn this morning with CBC revealing continued pancytopenia with WBC 1.2, hemoglobin 10.3, hematocrit 31.0, and platelets of 140. BMP and magnesium pending. Patient denies having any headache, lightheadedness, dizziness, cough or congestion, sore throat or dy sphasia, shortness of breath, chest pain, palpitations, nausea, vomiting, or any further complaints at this time. Awaiting GI and Heme/Onc consultations and further recommendations. We will advance diet from ice chips to clear liquid diet and plan for possible discharge tomorrow morning. Continuation of cefepime and Flagyl. Physical exam: General: non toxic, no distress, appears at stated age Derm: skin is warm and dry Head: atraumatic, normocephalic, symmetric Eyes: EOMI, no lid lag, anicteric sclera Mouth: no lip lesion, mucus membranes moist Cardiovascular: S1S2 reg, no murmur, no lower extremity edema, positive posterior tibial pulses bilaterally. Cap refill < 2 seconds Lungs: Respirations even, regular, and unlabored on room air with lungs CTA bi laterally, no rhonchi, no rales, no wheezes and no accessory muscle use Abdominal: Obese and soft, Tenderness to palpation in LLQ, however no guarding, no rebound tenderness and no appreciable organomegaly Ext: no gross muscle atrophy, no edema, no contractures Neuro: CN II-XII grossly intact, no focal neuro deficits Psych: Alert, oriented, appropriate affect Objective - Vital Signs Vital signs: Vital Signs Temp 97.5 F L 02/20/20 08:00 Pulse 69 02/20/20 08:00 Resp 18 02/20/20 08:00 BP 109/69 02/20/20 08:00 Pulse Ox 96 02/20/20 08:00 Intake & Output 02/19/20 02/20/20 02/20/20 18:59 06:59 18:59 Intake Total 200 Balance 200 Weight 107.501 kg 107.501 kg Intake: Intake, IV Titration 200 Amount Cefepime 2 gm In Sodium 100 Chloride 0.9% 100 ml @ 25 mls/hr IVPB Q8HR [facility] Rx# :[id number] metroNIDAZOLE-NS PMX 500 100 mg In Saline 1 100ml.bag @ 100 mls/hr IVPB ONCE@ 1600 ONE Rx#:[id number] Other: # Voids 2 - Labs CBC & Chem 7: 02/20/20 06:37 02/19/20 11:27 Labs: Abnormal Lab Results - Last 24 Hours (Table) 02/19/20 02/19/20 02/19/20 Range/Units 11:27 11:27 11:27 WBC 0.4 L* (3.8-10.6) k/uL RBC 3.67 L (4.30-5.90) m/uL Hgb 10.7 L (13.0-17.5) gm/dL Hct 31.3 L (39.0-53.0) % RDW 16.0 H (11.5-15.5) % Plt Count 148 L (150-450) k/uL Blast Cells % % Neutrophils # (Manual) (1.3-7.7) k/uL Lymphocytes # (Manual) (1.0-4.8) k/uL Promyelocytes # (Man) (0) k/uL Blast Cells # (Man) (0) k/uL D-Dimer 0.94 H (<0.60) mg/L FEU Sodium 134 L (137-145) mmol/L Total Protein 6.0 L (6.3-8.2) g/dL Albumin 3.4 L (3.5-5.0) g/dL 02/20/20 Range/Units 06:37 WBC 1.2 L* (3.8-10.6) k/uL RBC 3.55 L (4.30-5.90) m/uL Hgb 10.3 L (13.0-17.5) gm/dL Hct 31.0 L (39.0-53.0) % RDW 15.9 H (11.5-15.5) % Plt Count 140 L (150-450) k/uL Blast Cells % 1 H* % Neutrophils # (Manual) 0.50 L (1.3-7.7) k/uL Lymphocytes # (Manual) 0.19 L (1.0-4.8) k/uL Promyelocytes # (Man) 0.01 H (0) k/uL Blast Cells # (Man) 0.01 H (0) k/uL D-Dimer (<0.60) mg/L FEU Sodium (137-145) mmol/L Total Protein (6.3-8.2) g/dL Albumin (3.5-5.0) g/dL Assessment and Plan Plan: Plan of care: Mild Sepsis, resolved -Likely secondary to acute diverticulitis -Leukopenia is improving from previous 0.4-1.2 this morning. -Tachycardia has resolved status post administration of fluid hydration. -Continue fluid hydration and treatment of underlying infection acute diverticulitis. Acute diverticulitis -Pending GI consult to Dr. Webber and additional recommendations Continue IV antibiotic cefepime and Flagyl Advance from NPO with ice chips to clear liquid diet and monitor how patient tolerates Continued gentle hydration with 0.9% normal saline at 100mL's per hour Symptomatic care and pain management with Zofran for nausea and/or vomiting and morphine for severe pain. Continued close monitoring of I's and O's and further reports of repeated episodes of diarrhea. Dyspnea likely multifactorial due to sepsis, COPD, and deconditioning from chemotherapy, resolved -Continue use of incentive spirometry 8-10 times per hour while awake. COPD Duo nebs as needed for wheezing and/or shortness of breath. Oxygenation as needed to maintain SpO2 equal to or greater than 92%. Incentive spirometry. pulse oximetry every 4 hours. Pancytopenia CBC revealed continued pancytopenia with WBC 1.2, hemoglobin 10.3, hematocrit 31.0, and platelet count of 140. Likely secondary to pt currently undergoing chemotherapy treatment due to B- cell lymphoma. Continue to monitor closely with repeat a.m. labs. Neutropenic precautions. Consult pending with Heme/Onc Dr. Chinchilla and appreciate further recommendations. B-cell lymphoma Consult to Heme/Onc Dr. Chinchilla. Continued close monitoring with repeat a.m. labs. Neutropenic precautions Hypertension Monitor vital signs and continue daily medication management. Code status: Full Code DVT prophylaxis: SCDs, no anticoagulation due to thrombocytopenia. Home medications reviewed and ordered. Pt does not have a DPOA, but would like his to make decisions in the event he cannot. A total of 35 minutes was spent on the care of this complex patient more than 50% of the time was spent in counseling and care coordination. <Sabrina Farley - Last Filed: 02/20/20 11:09> Objective - Vital Signs Vital signs: Vital Signs Temp 97.5 F L 02/20/20 08:00 Pulse 69 02/20/20 08:00 Resp 18 02/20/20 08:00 BP 109/69 02/20/20 08:00 Pulse Ox 96 02/20/20 08:00 Intake & Output 02/19/20 02/20/20 02/20/20 18:59 06:59 18:59 Intake Total 200 Balance 200 Weight 107.501 kg 107.501 kg Intake: Intake, IV Titration 200 Amount Cefepime 2 gm In Sodium 100 Chloride 0.9% 100 ml @ 25 mls/hr IVPB Q8HR [facility] Rx# :[id number] metroNIDAZOLE-NS PMX 500 100 mg In Saline 1 100ml.bag @ 100 mls/hr IVPB ONCE@ 1600 ONE Rx#:[id number] Other: # Voids 2 - Labs CBC & Chem 7: 02/20/20 06:37 02/19/20 11:27 Labs: Abnormal Lab Results - Last 24 Hours (Table) 02/19/20 02/19/20 02/19/20 Range/Units 11:27 11:27 11:27 WBC 0.4 L* (3.8-10.6) k/uL RBC 3.67 L (4.30-5.90) m/uL Hgb 10.7 L (13.0-17.5) gm/dL Hct 31.3 L (39.0-53.0) % RDW 16.0 H (11.5-15.5) % Plt Count 148 L (150-450) k/uL Blast Cells % % Neutrophils # (Manual) (1.3-7.7) k/uL Lymphocytes # (Manual) (1.0-4.8) k/uL Promyelocytes # (Man) (0) k/uL Blast Cells # (Man) (0) k/uL D-Dimer 0.94 H (<0.60) mg/L FEU Sodium 134 L (137-145) mmol/L Total Protein 6.0 L (6.3-8.2) g/dL Albumin 3.4 L (3.5-5.0) g/dL 02/20/20 Range/Units 06:37 WBC 1.2 L* (3.8-10.6) k/uL RBC 3.55 L (4.30-5.90) m/uL Hgb 10.3 L (13.0-17.5) gm/dL Hct 31.0 L (39.0-53.0) % RDW 15.9 H (11.5-15.5) % Plt Count 140 L (150-450) k/uL Blast Cells % 1 H* % Neutrophils # (Manual) 0.50 L (1.3-7.7) k/uL Lymphocytes # (Manual) 0.19 L (1.0-4.8) k/uL Promyelocytes # (Man) 0.01 H (0) k/uL Blast Cells # (Man) 0.01 H (0) k/uL D-Dimer (<0.60) mg/L FEU Sodium (137-145) mmol/L Total Protein (6.3-8.2) g/dL Albumin (3.5-5.0) g/dL Assessment and Plan Assessment: Patient seen and examined independently. Patient was also seen by Joel Nieto NP and case was discussed. I am in agreement with subjective, physical exam, assessment and plan as written above and amended below. 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
[2020-02-20 11:27] LABS: Albumin 3.8 g/dL (3.80-4.90); Albumin/Globulin Ratio 2.11 (1.60-3.17); Anion Gap 8.6 mmol/L (4.00-12.00); BUN/Creat Ratio 21.11 Ratio (12.00-20.00); Carbon Dioxide 25.4 mmol/L (21.6-31.8); Globulin 1.8 g/dL (1.6-3.3); Magnesium 2.3 mg/dL (1.5-2.4); Non-African American GFR(CKD) 90.6 (60.0-200.0); Potassium 4.7 mmol/L (3.5-5.5); Total Bilirubin 0.4 mg/dL (0.3-1.2); Total Protein 5.6 g/dL (6.2-8.2)
--- NOTE | 2020-02-20 15:24 | P.CONS ---
History of Present Illness - Reason for Consult Consult date: 02/20/20 B Cell Lymphoma Requesting physician: Yessenia Portillo - Chief Complaint Neutropenia - History of Present Illness Mr. Oleary was recently seen at [facility] with complaints of abdominal pain in [facility] and at that time treated for neutropenia and diverticulitis with bowel rest, antibiotics, and growth factor. He is currently undergoing treatment for NHL out of the [facility]. It is believed he received R-CHOP with growth factor on 02/12/20. He has a known history of Hypertension, left renal cancer and nephrectomy. He described his abdominal pain as severe cramping, and soft frequent bowel movements which do provide some relief. His WBC and Neutrophils are low, since he did receive growth factor after last treatment out of [facility] it would not be indicated at this time to add. Diet restriction and IV antibiotics initiated per primary team for treatment of acute diverticulitis. Keep NPO at this time. 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, first chemo treatment 12/12 at [facility], renal cancer Left kidney stage IV Mar 2004 - left kidney removed, Gout History of Any Multi-Drug Resistant Organisms: None Reported Past Surgical History: Adenoidectomy, Appendectomy, Hernia Repair, Tonsillectomy Additional Past Surgical History / Comment(s): left kidney removed Past Anesthesia/Blood Transfusion Reactions: No Reported Reaction Past Psychological History: No Psychological Hx Reported Smoking Status: Former smoker Past Alcohol Use History: Occasional Past Drug Use History: None Reported - Past Family History Father Family Medical History: Congestive Heart Failure (CHF) Mother Additional Family Medical History / Comment(s): old age Medications and Allergies Home Medications Medication Instructions Recorded Confirmed Type Allopurinol [Zyloprim] 100 mg PO DAILY 12/25/19 02/19/20 History Carvedilol [Coreg] 6.25 mg PO BID 12/25/19 02/19/20 History Multivitamin [Multivitamins Adult 1 tablet PO DAILY 12/25/19 02/19/20 History Gummies] Torsemide [Demadex] 30 mg PO DAILY 12/25/19 02/19/20 History amLODIPine [Norvasc] 10 mg PO DAILY 12/25/19 02/19/20 History lisinopriL 40 mg PO DAILY 12/25/19 02/19/20 History Prochlorperazine [Compazine] 10 mg PO Q6H PRN 02/19/20 02/19/20 History ondansetron HCL [Zofran] 8 mg PO Q8H PRN 02/19/20 02/19/20 History Allergies Allergy/AdvReac Type Severity Reaction Status Date / Time acetaminophen [From Tylenol] Allergy Anaphylaxis Verified 02/19/20 12:31 adhesive tape Allergy BLISTERS Verified 02/19/20 12:31 Physical Exam Vitals: Vital Signs Temp Pulse Pulse Resp BP BP Pulse Ox 02/20/20 12:24 98.0 F 69 18 118/69 96 02/20/20 08:00 97.5 F L 69 18 109/69 96 02/20/20 02:05 97.6 F 79 20 119/68 98 02/19/20 19:20 98.5 F 84 20 118/72 95 02/19/20 18:13 99 F 96 18 119/71 96 02/19/20 16:32 98 18 116/77 99 Intake and Output 02/20/20 02/20/20 02/20/20 06:59 14:59 22:59 Intake Total 200 Balance 200 Intake: Intake, IV Titration 200 Amount Cefepime 2 gm In Sodium 100 Chloride 0.9% 100 ml @ 25 mls/hr IVPB Q8HR [facility] Rx# :[id number] metroNIDAZOLE-NS PMX 500 100 mg In Saline 1 100ml.bag @ 100 mls/hr IVPB ONCE@ 1600 ONE Rx#:[id number] Other: # Voids 2 - Constitutional General appearance: cooperative, no acute distress - EENT Eyes: EOMI, PERRLA ENT: NA/AT, normal oropharynx - Neck Neck: normal ROM - Respiratory Respiratory: bilateral: CTA - Cardiovascular Rhythm: regular Heart sounds: normal: S1, S2 - Gastrointestinal General gastrointestinal: normal bowel sounds, soft, mild tender LLQ - Integumentary Integumentary: pale - Neurologic Neurologic: CNII-XII intact - Musculoskeletal Musculoskeletal: generalized weakness, strength equal bilaterally - Psychiatric Psychiatric: A&O x's 3, appropriate affect, intact judgment & insight Results CBC & Chem 7: 02/20/20 06:37 02/20/20 06:37 Labs: Abnormal Lab Results - Last 24 Hours (Table) 02/20/20 02/20/20 Range/Units 06:37 06:37 WBC 1.2 L* (3.8-10.6) k/uL RBC 3.55 L (4.30-5.90) m/uL Hgb 10.3 L (13.0-17.5) gm/dL Hct 31.0 L (39.0-53.0) % RDW 15.9 H (11.5-15.5) % Plt Count 140 L (150-450) k/uL Blast Cells % 1 H* % Neutrophils # (Manual) 0.50 L (1.3-7.7) k/uL Lymphocytes # (Manual) 0.19 L (1.0-4.8) k/uL Promyelocytes # (Man) 0.01 H (0) k/uL Blast Cells # (Man) 0.01 H (0) k/uL BUN/Creatinine Ratio 21.11 H (12.00-20.00) Ratio Glucose 141 H (70-110) mg/dL Total Protein 5.6 L (6.2-8.2) g/dL Microbiology - Last 24 Hours (Table) 02/19/20 11:33 Blood Culture - Preliminary Blood No Growth after 24 hours 02/19/20 11:17 Blood Culture - Preliminary Blood No Growth after [address] scan - abdomen: report reviewed Assessment and Plan (1) Pancytopenia Current Visit: Yes Status: Acute Code(s): D61.818 - OTHER PANCYTOPENIA SNOMED Code(s): 531476220 (2) B-cell lymphoma Current Visit: Yes Status: Acute Code(s): C85.10 - UNSPECIFIED B-CELL LYMPHOMA, UNSPECIFIED SITE SNOMED Code(s): 913688715 (3) Diverticulitis Current Visit: Yes Status: Acute Code(s): K57.92 - DVTRCLI OF INTEST, PART UNSP, W/O PERF OR ABSCESS W/O BLEED SNOMED Code(s): 891032068 Plan: Daily CBC Remain NPO at this time for bowel rest with active inflammation while neutropenia Transfuse if hemoglobin les than 7 IV antibiotics Follow with [facility] after discharge Physician attest: I have completed the full history and physical and agree with above dictation, dictated as a scribe.
--- NOTE | 2020-02-20 16:47 | CONS ---
CONSULTATION DATE OF DICTATION: 02/20/2020 REASON FOR CONSULTATION: Acute sigmoid diverticulitis. HISTORY OF PRESENT ILLNESS: The patient is a 64-year-old pleasant white male who follows with Dr. Chinchilla and was diagnosed with B-cell lymphoma, for which he is undergoing chemotherapy. The patient presented with severe left lower quadrant abdominal pain for the last 4 days' duration. The pain continued to progressively get worse, associated with nausea and vomiting but no fever or chills. He came to the emergency room yesterday and had a CT of the abdomen and pelvis done that showed moderate to severe sigmoid diverticulitis. He was started on broad-spectrum antibiotics and is doing much better today. He still has some mild abdominal pain. No nausea, no vomiting. No fever, no chills. He had a similar episode of acute sigmoid diverticulitis in December of 2018, treated with antibiotics, and was discharged home. His last colonoscopy was done at [facility] approximately 5 years ago. In the ER, he was also noted to have leukopenia related to recent chemotherapy. White count was 0.4 and today it is 1.4. Hemoglobin normal. PAST MEDICAL HISTORY: His past medical history is significant for B-cell lymphoma diagnosed recently, undergoing chemotherapy, history of hypertension, gout. PAST SURGICAL HISTORY: Left kidney cancer diagnosed in March 2004, appendectomy, adenoidectomy, hernia repair, tonsillectomy, colonoscopy 5 years ago. SOCIAL HISTORY: Former smoker. No alcohol use. FAMILY HISTORY: Father had congestive heart failure and mother of natural causes. MEDICATIONS AT HOME: Medications at home include Zyloprim, Coreg, multivitamin, Demadex, Norvasc, lisinopril, Compazine and Zofran. ALLERGIES: TYLENOL #3 AND ADHESIVE TAPE. REVIEW OF SYSTEMS: CARDIOPULMONARY: He denies any chest pain or shortness of breath. GENITOURINARY: No dysuria or hematuria. MUSCULOSKELETAL: Unremarkable. SKIN: Unremarkable. ENDOCRINE: Unremarkable. PSYCHIATRIC: Unremarkable. NEUROLOGY: Unremarkable. ONCOLOGY: B-cell lymphoma diagnosed late last year; undergoing chemotherapy. CONSTITUTIONAL: No recent weight loss. No fever, chills, night sweats. PHYSICAL EXAMINATION: He appears comfortable. No apparent distress. Vital signs are stable. Blood pressure is 109/69, pulse rate 69, temperature 97.5. HEENT examination unremarkable. Conjunctivae pink. Sclerae anicteric. Oral cavity no lesions. NECK: No JVD or lymph node enlargement. CHEST: Clear to auscultation. HEART: Regular rate and rhythm. ABDOMEN: Soft. There was very minimal tenderness in the left lower quadrant area. Rest of the abdomen was benign. Bowel sounds are positive. No organomegaly. EXTREMITIES: No pedal edema. NEUROLOGIC: Alert and oriented x3. No focal deficits. LABS: WBC 0.4, hemoglobin 10.7, platelets 148. Today hemoglobin is 10.3, WBC 1.2, platelets 140. AST, ALT, T-bilirubin and alkaline phosphatase are within normal limits. BUN and creatinine are within normal limits. Albumin is 3.6. Coronavirus PCR is negative. CT of the abdomen and pelvis done in the emergency room 2 days ago did show recurrent acute diverticulitis along the proximal sigmoid colon with mild to moderate inflammation but no abscess. IMPRESSION: 1. Acute sigmoid diverticulitis. Patient presented with severe left lower quadrant abdominal pain for the last 3-4 days' duration. Presently on broad-spectrum antibiotics with Flagyl and cefepime, and he is doing much better. Abdominal pain has almost resolved. Currently on a clear liquid diet, tolerating well. 2. B-cell lymphoma, undergoing chemotherapy. He received fourth dose of chemotherapy a week ago. 3. Pancytopenia secondary to recent chemotherapy. 4. History of hypertension. RECOMMENDATIONS: 1. Continue with antibiotics with Flagyl and cefepime. 2. Start him on a clear liquid diet. 3. Monitor labs closely. 4. If he is doing well, will advance diet to a soft diet tomorrow. 5. Will plan an outpatient colonoscopy in 3-4 months after his chemotherapy is done. Will follow with you closely. Thank you for this consultation. MMODL / IJN: [id number] /
[2020-02-20 21:10] VITALS: TEMP 98
[2020-02-21] MEDS: SODIUM CHLORIDE 0.9% 1,000 ML IV SCH ×2 (00:24→01:28)
[2020-02-21] MEDS: CEFEPIME 2 GM in SODIUM CHLORIDE 0.9% 100 ML IVPB SCH ×2 (01:25→09:21)
[2020-02-21 05:38] LABS: Anisocytosis Slight; HCT 29.1 % (39.0-53.0); HGB 9.4 gm/dL (13.0-17.5); MCH 28.2 pg (25.0-35.0); MCHC 32.4 g/dL (31.0-37.0); MCV 86.9 fL (80.0-100.0); Mean Platelet Volume 8.7; Platelet Count 148 k/uL (150-450); RBC 3.35 m/uL (4.30-5.90); WBC 5.9 k/uL (3.8-10.6)
[2020-02-21 06:55] LABS: African American GFR (CKD) >90 (>60 ml/min/1.73 sqM); Anion Gap 0 mmol/L; Blood Urea Nitrogen 15 mg/dL (9-20); Calcium 8.7 mg/dL (8.4-10.2); Carbon Dioxide 26 mmol/L (22-30); Chloride 110 mmol/L (98-107); Glucose 95 mg/dL (74-99); Non-African American GFR(CKD) >90 (>60 ml/min/1.73 sqM); Potassium 4.3 mmol/L (3.5-5.1); Sodium 136 mmol/L (137-145)
[2020-02-21] MEDS: metroNIDAZOLE-NS PMX 500 MG in SALINE 1 100ML.BAG IVPB SCH (07:45)
[2020-02-21 07:50] VITALS: BP 106/63; PULSE 67; RESP 20
[2020-02-21] MEDS: amLODIPine 10 MG TAB PO SCH (09:38)
[2020-02-21] MEDS: allopurinoL 100 MG TAB PO SCH (09:38)
[2020-02-21] MEDS: carvediloL 6.25 MG TAB PO SCH (09:38)
[2020-02-21] MEDS: lisinopriL 20 MG TAB PO SCH (09:39)
--- NOTE | 2020-02-21 13:20 | P.PN ---
Subjective Progress Note Date: 02/21/20 Principal diagnosis: Acute Sigmoid diverticulitis This is a very pleasant 64-year-old male patient who follows with Dr. Chinchilla and was diagnosed with B-cell lymphoma for which he is currently undergoing chemotherapy through [facility]. The patient presented to the hosp ital with severe left lower quadrant abdominal pain and states he had a prior episode of diverticulitis in December which the pain was similar to. He seen and examined sitting up in bed. He states that his abdominal pain is improved significantly. He was on cefepime and Flagyl. He remains afebrile without any acute changes through the night. He denies any nausea or vomiting. He states he has had loose stools, but he always has loose stools, denies any blood in stool or rectal bleeding. Objective - Vital Signs Vital signs: Vital Signs Temp 98.0 F 02/21/20 07:49 Pulse 67 02/21/20 07:49 Resp 20 02/21/20 07:49 BP 106/63 02/21/20 07:49 Pulse Ox 97 02/21/20 07:49 Intake & Output 02/20/20 02/21/20 02/21/20 18:59 06:59 18:59 Intake Total 350 Balance 350 Intake: Oral 350 Other: # Voids 3 - Exam General appearance: The patient is alert, oriented, in no acute distress. Obese. HET: Head is normocephalic and atraumatic. Conjunctiva pink. Sclera anicteric. Neck: Supple without lymphadenopathy. Abdomen: Soft, mild left lower quadrant tenderness, nondistended with bowel sounds. No guarding or rigidity. Extremities: Normal skin color and turgor. No pedal edema Neurological: No focal deficits. Alert and oriented 3. - Labs CBC & Chem 7: 02/21/20 05:19 02/21/20 05:19 Labs: Abnormal Lab Results - Last 24 Hours (Table) 02/20/20 02/21/20 02/21/20 Range/Units 06:37 05:19 05:19 RBC 3.35 L (4.30-5.90) m/uL Hgb 9.4 L (13.0-17.5) gm/dL Hct 29.1 L (39.0-53.0) % RDW 17.0 H (11.5-15.5) % Plt Count 148 L (150-450) k/uL Sodium 136 L (137-145) mmol/L Chloride 110 H (98-107) mmol/L BUN/Creatinine Ratio 21.11 H (12.00-20.00) Ratio Glucose 141 H (70-110) mg/dL Total Protein 5.6 L (6.2-8.2) g/dL Microbiology - Last 24 Hours (Table) 02/19/20 11:33 Blood Culture - Preliminary Blood No Growth after 24 hours 02/19/20 11:17 Blood Culture - Preliminary Blood No Growth after 24 hours Assessment and Plan (1) Diverticulitis Narrative/Plan: Gentleman who presented with acute sigmoid diverticulitis. Patient presented with severe left lower quadrant abdominal pain for the last 3-4 days duration. Presently on broad-spectrum antibiotics with Flagyl and cefepime and is doing much better. Abdominal pain has almost completely resolved. Patient's been on a clear liquid diet times tolerating well in advance to low fiber diet for lunch. Current Visit: Yes Status: Acute Code(s): K57.92 - DVTRCLI OF INTEST, PART UNSP, W/O PERF OR ABSCESS W/O BLEED SNOMED Code(s): 833171819 (2) B-cell lymphoma Narrative/Plan: Patient has B-cell lymphoma undergoing chemotherapy. He received 4 doses of chemotherapy, last one a week ago. He has 2 more rounds. Current Visit: Yes Status: Acute Code(s): C85.10 - UNSPECIFIED B-CELL LYMPHOMA, UNSPECIFIED SITE SNOMED Code(s): 737805316 (3) Pancytopenia Narrative/Plan: Secondary to recent chemotherapy Current Visit: Yes Status: Acute Code(s): D61.818 - OTHER PANCYTOPENIA SNOMED Code(s): 657743916 Plan: 1. Continue with antibiotics Flagyl and cefepime 2. Advance to low fiber diet 3. Monitor labs closely 4. Will plan outpatient colonoscopy in 3-4 months after his chemotherapy is completed. 5. Thank you for this consultation, patient may be discharged home from a gastroenterology standpoint continued oral antibiotics Dr. Urvashi Webber I agree with the dictator's note, documented as a scribe by Mercedes South.
--- NOTE | 2020-02-21 15:14 | P.DS ---
<Joel Nieto - Last Filed: 02/21/20 15:39> Providers Expected date of discharge: 02/21/20 Hospital Course: Discharge Diagnosis: Mild Sepsis resulting from diverticulitis, resolved Acute diverticulitis Dyspnea likely multifactorial due to sepsis, COPD, and deconditioning from chemotherapy, resolved. COPD, stable Pancytopenia, improved B-cell lymphoma Hypertension, stable Hospital Course: Patient is a 64-year-old male with a past medical history of HTN, COPD not home oxygen dependent (reports history of tobacco use smoking greater than one pack of cigarettes daily 30 years), diverticulosis, renal carcinoma resulting in left sided nephrectomy in remission 15 years, B-cell lymphoma currently undergoing his fourth round of chemotherapy with last dose being administered on 02/12/[address] Chinchilla. Pt [facility] to [facility]'s emergency department with a chief complaint of shortness of breath and abdominal pain. Influenza, RSV, and Covid 19 PCR all negative. Urinalysis negative for infection. Mr. Oleary was admitted, diagnosed and treated for mild sepsis, acute diverticulitis, and pancytopenia. Sepsis clinically improved after initiation of IV antibiotics and gentle fluid hydration. Pancytopenia progressively improved each day and upon discharge labs revealed WBCs 5.9, hemoglobin 9.4, hematocrit 29.1, and platelet count of 148. Patient being discharged home on oral antibiotics Flagyl and ciprofloxacin and to follow-up with PCP in 1-[address] 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 Patient to continue outpatient treatment with Dr. Chinchilla at [facility] for B cell lymphoma as previously scheduled. Patient was seen and fully evaluated at the bedside. He reports that he has been able to tolerate clear liquids, full liquids, and now soft diet without any difficulties. Patient denies having any episodes of nausea or vomiting and denies any further episodes of diarrhea. Patient reports bowel movement this morning with soft formed brown stool. Patient states significant improvement in left lower quadrant pain in which he rates at "less than 1" on a scale of 1-10. Patient denies having any other complaints including headache, lightheadedness, dizziness, chest pain or palpitations, or shortness of breath. GI evaluated patient and due to patient tolerating oral intake, it was recommended to discharge patient home on oral antibiotics and instruct patient to progress to low fiber diet. Pt to follow up outpatient for colonoscopy once chemotherapy is completed. Physical exam: General: non toxic, no distress, appears at stated age Derm: skin is warm and dry Head: atraumatic, normocephalic, symmetric Eyes: EOMI, no lid lag, anicteric sclera Mouth: no lip lesion, mucus membranes moist Cardiovascular: S1S2 reg, no murmur, no lower extremity edema, positive posterior tibial pulses bilaterally. Cap refill < 2 seconds Lungs: Respirations even, regular, and unlabored on room air with lungs CTA bilaterally, no rhonchi, no rales, no wheezes and no accessory muscle use Abdominal: Obese and soft, non-tender to palpation, no guarding, no rebound tenderness and no appreciable organomegaly Ext: no gross muscle atrophy, no edema, no contractures Neuro: CN II-XII grossly intact, no focal neuro deficits Psych: Alert, oriented, appropriate affect A total of 45 minutes of time was spent preparing this complex discharge summary . Patient Condition at Discharge: Stable Plan - Discharge Summary New Discharge Prescriptions: New Ciprofloxacin/Ciprofloxa HCl [Ciprofloxacin ER] 500 mg PO Q24HR 7 Days #7 tab Melatonin 3 mg PO HS PRN tablet PRN Reason: Insomnia metroNIDAZOLE [Flagyl] 500 mg PO TID 7 Days #21 tab Continue lisinopriL 40 mg PO DAILY amLODIPine [Norvasc] 10 mg PO DAILY Carvedilol [Coreg] 6.25 mg PO BID Allopurinol [Zyloprim] 100 mg PO DAILY Torsemide [Demadex] 30 mg PO DAILY Multivitamin [Multivitamins Adult Gummies] 1 tablet PO DAILY ondansetron HCL [Zofran] 8 mg PO Q8H PRN PRN Reason: Nausea Prochlorperazine [Compazine] 10 mg PO Q6H PRN PRN Reason: Nausea Discharge Medication List Allopurinol [Zyloprim] 100 mg PO DAILY 12/25/19 [History] Carvedilol [Coreg] 6.25 mg PO BID 12/25/19 [History] Multivitamin [Multivitamins Adult Gummies] 1 tablet PO DAILY 12/25/19 [History] Torsemide [Demadex] 30 mg PO DAILY 12/25/19 [History] amLODIPine [Norvasc] 10 mg PO DAILY 12/25/19 [History] lisinopriL 40 mg PO DAILY 11/10/20 [History] Prochlorperazine [Compazine] 10 mg PO Q6H PRN 02/19/20 [History] ondansetron HCL [Zofran] 8 mg PO Q8H PRN 02/19/20 [History] Ciprofloxacin/Ciprofloxa HCl [Ciprofloxacin ER] 500 mg PO Q24HR 7 Days #7 tab 02/21/20 [Rx] Melatonin 3 mg PO HS PRN tablet 02/21/20 [Rx] metroNIDAZOLE [Flagyl] 500 mg PO TID 7 Days #21 tab 02/21/20 [Rx] Follow up Appointment(s)/Referral(s): Pamella Webber MD [STAFF PHYSICIAN] - 03/12/20 9:00 am Seng Arvizu [Primary Care Provider] - 02/25/20 3:30 pm Patient Instructions/Handouts: Acute Bronchitis (GEN) Activity/Diet/Wound Care/Special Instructions: Activity: As tolerated Diet: Regular diet, continue with soft diet and advance as tolerated. Special Instructions: Follow up with PCP in 1-2 days and GI next week. Continue with follow up with [facility] as scheduled. Discharge Disposition: HOME SELF-CARE <Sabrina Farley - Last Filed: 02/21/20 16:46> Providers Date of admission: 02/20/20 09:57 Attending physician: Sabrina Farley MD Consults: 02/19/20 15:15 Consult Physician Urgent Consulting Provider: Shay Chinchilla Consult Reason/Comments: b-cell lymphoma, on chemo Do you want consulting provider notified?: Yes Consult Physician Urgent Consulting Provider: Pamella Webber Consult Reason/Comments: acute diverticulitis Do you want consulting provider notified?: Yes Primary care physician: Seng Arvizu Hospital Course: Patient seen and examined independently. Patient was also seen by Joel Nieto NP and case was discussed. I am in agreement with discharge diagnosis, hospital course, and physical exam as written above and amended below. General examination - Alert and Oriented 3 in NAD Heart - + S1S2 no murmurs Lungs - Clear to auscultation Abdomen soft NT ND +ve BS Extremities - No edema IMPLEMENTATION LEAD - Moving all 4 extremities spontaneously Psych - Calm and cooperative
== END 2020-02-21 13:50 | disposition home or self-care (01) | DRG 871 ==
LOC: EC 10:26 → 5NMEDONC 15:13 → OBSVTOIN 02-20 09:57
PROVIDERS: ADMIT Internal Medicine; ATTEND Internal Medicine
DX: A41.9 Sepsis, unspecified organism (principal); D61.810 Antineoplastic chemotherapy induced pancytopenia; C85.10 Unspecified B-cell lymphoma, unspecified site; E87.1 Hypo-osmolality and hyponatremia; K57.32 Diverticulitis of large intestine without perforation or abscess without bleeding; I10 Essential (primary) hypertension; J43.9 Emphysema, unspecified; J20.9 Acute bronchitis, unspecified; T45.1X5A Adverse effect of antineoplastic and immunosuppressive drugs, initial encounter; Z79.899 Other long term (current) drug therapy; Z82.49 Family history of ischemic heart disease and other diseases of the circulatory system; Z20.822 Contact with and (suspected) exposure to COVID-19; Z85.528 Personal history of other malignant neoplasm of kidney; Z87.891 Personal history of nicotine dependence; Z90.5 Acquired absence of kidney; Z90.89 Acquired absence of other organs; Z90.49 Acquired absence of other specified parts of digestive tract; M10.9 Gout, unspecified; Z88.6 Allergy status to analgesic agent
CPT/HCPCS: 36415; 71046; 71275; 74177; 80048; 80053; 81003; 83605; 83735; 83880; 84484; 85025; 85027; 85379; 85610; 85730; 87040; 87636; 93005; 96365; 96375; 99212; 99285

== ENCOUNTER 2020-02-26 09:31 | Observation (INO) | payer MEDICARE, OTHER ==
[2020-02-26] MEDS ORDERED: SODIUM CHLORIDE 0.9% 1,000 ML IV ONE (10:16)
[2020-02-26] MEDS ORDERED: PIPERACILLIN-TAZOBACTAM 3.375 GM in SODIUM CHLORIDE 0.9% 100 ML IVPB STA (10:17)
--- NOTE | 2020-02-26 10:23 | ED ---
Recheck HPI - General Chief Complaint: Recheck/Abnormal Lab/Rx Stated Complaint: Hypotensive, Abnormal labs Time Seen by Provider: 02/26/20 10:02 Source: patient, family Mode of arrival: ambulatory Limitations: no limitations - History of Present Illness Initial Comments: 64yo male presenting for cc of lightheadedness, white count, low grade fever and lower than usual blood pressures. This is a 64-year-old male that is currently undergoing r-chop chemotherapy for lymphoma presenting to the ER today for cc of possibly worsening diverticulitis. Pt states that he was here last week and diagnosed with diverticulitis. He states he was sent home on oral antibiotics and felt fine at that time. Patient states that his abdominal pain seems to be getting better he states he does have some fullness in the lower abdomen. Patient states he was at his primary care physician office yesterday where they do laboratory studies and noted that his blood pressure was lower than his normal baseline. PCP also felt (per patient) he had a low-grade fever. Patient was called by his primary care provider and told to come to the ER today as he had a white count of 19 and there was concern for sepsis. patient has no additional complaints. he does have a power port. He undergoes oncological treatment of [facility]. Pt denies cough, urinary symptoms, high fevers, chest pain, dyspnea. - Related Data Home Medications Medication Instructions Recorded Confirmed Allopurinol [Zyloprim] 100 mg PO DAILY 12/25/19 02/26/20 Torsemide [Demadex] 30 mg PO DAILY 12/25/19 02/26/20 amLODIPine [Norvasc] 10 mg PO DAILY 12/25/19 02/26/20 lisinopriL 40 mg PO DAILY 12/25/19 02/26/20 Atorvastatin [Lipitor] 20 mg PO HS 02/26/20 02/26/20 Allergies Allergy/AdvReac Type Severity Reaction Status Date / Time acetaminophen [From Tylenol] Allergy Anaphylaxis Verified 02/26/20 11:16 adhesive tape Allergy BLISTERS Verified 02/26/20 11:16 Review of Systems ROS Statement: Those systems with pertinent positive or pertinent negative responses have been documented in the HPI. ROS Other: All systems not noted in ROS Statement are negative. 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, first chemo treatment 12/12 at [facility], renal cancer Left kidney stage IV Mar 2004 - left kidney removed, Gout History of Any Multi-Drug Resistant Organisms: None Reported Past Surgical History: Adenoidectomy, Appendectomy, Hernia Repair, Tonsillectomy Additional Past Surgical History / Comment(s): left kidney removed Past Anesthesia/Blood Transfusion Reactions: No Reported Reaction Past Psychological History: No Psychological Hx Reported Smoking Status: Former smoker Past Alcohol Use History: Occasional Past Drug Use History: None Reported - Past Family History Father Family Medical History: Congestive Heart Failure (CHF) Mother Additional Family Medical History / Comment(s): old age General Exam - General Exam Comments Initial Comments: General: The patient is awake and alert, in no distress Eye: Pupils are equal, round and reactive to light, extra-ocular movements are intact. No nystagmus. There is normal conjunctiva bilaterally. No signs of icterus. Ears, nose, mouth and throat: There are moist mucous membranes and no oral lesions. Neck: The neck is supple, there is no tenderness or JVD. Cardiovascular: There is a regular rate and rhythm. No murmur, rub or gallop is appreciated. Respiratory: Lungs are clear to auscultation, respirations are non-labored, breath sounds are equal. No wheezes, stridor, rales, or rhonchi. Gastrointestinal: [Soft, non-distended, minimally tender lower abdomen, abdomen without masses or organomegaly noted. There is no rebound or guarding present. Musculoskeletal: Normal ROM, no tenderness. Strength 5/5. Sensation intact. Pulses equal bilaterally 2+. Neurological: A&O x 3. CN II-XII intact grossly, There are no obvious motor or sensory deficits. Coordination appears grossly intact. Speech is normal. Skin: Skin is warm and dry and no rashes or lesions are noted. No LE edema, no calf pain Psychiatric: Cooperative, appropriate mood & affect, normal judgment. Limitations: no limitations Course Vital Signs 02/26/20 02/26/20 02/26/20 09:34 10:52 11:00 Temperature 98.3 F Pulse Rate 112 H 86 86 Respiratory 18 18 18 Rate Blood Pressure 111/72 93/68 109/66 O2 Sat by Pulse 98 98 98 Oximetry Medical Decision Making - Medical Decision Making Leukocytosis trending downward. Interval improvement of patient's diverticulitis. No obvious infiltrate on CT. Patient denies chest pain ro dyspnea. pt troponin is elevated at 0.054. will trend and keep patient for cardiology consultation as well as further evaluation of patient leukocytosis. Dr. Marinelli is agreeable to this care plan. - Lab Data Result diagrams: 02/26/20 10:22 02/26/20 10:22 Lab Results 02/26/20 02/26/20 02/26/20 Range/Units 10:22 10: 10:22 WBC 14.8 H (3.8-10.6) k/uL RBC 4.05 L (4.30-5.90) m/uL Hgb 11.6 L (13.0-17.5) gm/dL Hct 35.1 L (39.0-53.0) % MCV 86.8 (80.0-100.0) fL MCH 28.6 (25.0-35.0) pg MCHC 32.9 (31.0-37.0) g/dL RDW 18.0 H (11.5-15.5) % Plt Count 232 (150-450) k/uL MPV 8.0 Neutrophils % (Manual) 81 % Band Neuts % (Manual) 4 % Lymphocytes % (Manual) 2 % Monocytes % (Manual) 10 % Eosinophils % (Manual) 1 % Metamyelocytes % 1 % Myelocytes % 2 % Neutrophils # (Manual) 12.50 H (1.3-7.7) k/uL Lymphocytes # (Manual) 0.30 L (1.0-4.8) k/uL Monocytes # (Manual) 1.48 H (0-1.0) k/uL Eosinophils # (Manual) 0.15 (0-0.7) k/uL Metamyelocytes # (Man) 0.15 H (0) k/uL Myelocytes # (Manual) 0.30 H (0) k/uL Nucleated RBCs 0 (0-0) /100 WBC Manual Slide Review Performed Toxic Granulation Present Polychromasia Present Poikilocytosis (manual Present Anisocytosis Slight Sodium 137 (137-145) mmol/L Potassium 3.7 (3.5-5.1) mmol/L Chloride 103 (98-107) mmol/L Carbon Dioxide 27 (22-30) mmol/L Anion Gap 7 mmol/L BUN 17 (9-20) mg/dL Creatinine 1.14 (0.66-1.25) mg/dL Est GFR (CKD-EPI)AfAm 79 (>60 ml/min/1.73 sqM) Est GFR (CKD-EPI)NonAf 68 (>60 ml/min/1.73 sqM) Glucose 109 H (74-99) mg/dL Plasma Lactic Acid Tyler 1.4 (0.7-2.0) mmol/L Calcium 8.9 (8.4-10.2) mg/dL Magnesium 1.9 (1.6-2.3) mg/dL Total Bilirubin 0.4 (0.2-1.3) mg/dL AST 40 (17-59) U/L ALT 30 (4-49) U/L Alkaline Phosphatase 110 (38-126) U/L Troponin I (0.000-0.034) ng/mL Total Protein 6.0 L (6.3-8.2) g/dL Albumin 3.5 (3.5-5.0) g/dL Urine Color Urine Appearance (Clear) Urine pH (5.0-8.0) Ur Specific [place] (1.001-1.035) Urine Protein (Negative) Urine Glucose (UA) (Negative) Urine Ketones (Negative) Urine Blood (Negative) Urine Nitrite (Negative) Urine Bilirubin (Negative) Urine Urobilinogen (<2.0) mg/dL Ur Leukocyte Esterase (Negative) Coronavirus (PCR) (Not Detectd) 02/26/20 02/26/20 02/26/20 Range/Units 10:22 10:50 10:52 WBC (3.8-10.6) k/uL RBC (4.30-5.90) m/uL Hgb (13.0-17.5) gm/dL Hct (39.0-53.0) % MCV (80.0-100.0) fL MCH (25.0-35.0) pg MCHC (31.0-37.0) g/dL RDW (11.5-15.5) % Plt Count (150-450) k/uL MPV Neutrophils % (Manual) % Band Neuts % (Manual) % Lymphocytes % (Manual) % Monocytes % (Manual) % Eosinophils % (Manual) % Metamyelocytes % % Myelocytes % % Neutrophils # (Manual) (1.3-7.7) k/uL Lymphocytes # (Manual) (1.0-4.8) k/uL Monocytes # (Manual) (0-1.0) k/uL Eosinophils # (Manual) (0-0.7) k/uL Metamyelocytes # (Man) (0) k/uL Myelocytes # (Manual) (0) k/uL Nucleated RBCs (0-0) /100 WBC Manual Slide Review Toxic Granulation Polychromasia Poikilocytosis (manual Anisocytosis Sodium (137-145) mmol/L Potassium (3.5-5.1) mmol/L Chloride (98-107) mmol/L Carbon Dioxide (22-30) mmol/L Anion Gap mmol/L BUN (9-20) mg/dL Creatinine (0.66-1.25) mg/dL Est GFR (CKD-EPI)AfAm (>60 ml/min/1.73 sqM) Est GFR (CKD-EPI)NonAf (>60 ml/min/1.73 sqM) Glucose (74-99) mg/dL Plasma Lactic Acid Tyler (0.7-2.0) mmol/L Calcium (8.4-10.2) mg/dL Magnesium (1.6-2.3) mg/dL Total Bilirubin (0.2-1.3) mg/dL AST (17-59) U/L ALT (4-49) U/L Alkaline Phosphatase (38-126) U/L Troponin I 0.054 H* (0.000-0.034) ng/mL Total Protein (6.3-8.2) g/dL Albumin (3.5-5.0) g/dL Urine Color Colorless Urine Appearance Clear (Clear) Urine pH 6.0 (5.0-8.0) Ur Specific [place] 1.006 (1.001-1.035) Urine Protein Negative (Negative) Urine Glucose (UA) Negative (Negative) Urine Ketones Negative (Negative) Urine Blood Negative (Negative) Urine Nitrite Negative (Negative) Urine Bilirubin Negative (Negative) Urine Urobilinogen <2.0 (<2.0) mg/dL Ur Leukocyte Esterase Negative (Negative) Coronavirus (PCR) Not Detected (Not Detectd) Disposition Clinical Impression: Leukocytosis, Low blood pressure reading, Diverticulitis, Troponin level elevated Disposition: ADMITTED IP TO THIS HOSP Condition: Stable Is patient prescribed a controlled substance at d/c from ED?: No Referrals: Seng Arvizu [Primary Care Provider] - 1-2 days Time of Disposition: 12:58 Decision to Admit Reason: Admit from EC Decision Date: 02/26/20 Decision Time: 12:58
[2020-02-26] MEDS: SODIUM CHLORIDE 0.9% 1,000 ML IV SCH ×2 (10:57→17:29)
[2020-02-26 10:59] LABS: Anisocytosis Slight; HCT 35.1 % (39.0-53.0); HGB 11.6 gm/dL (13.0-17.5); MCH 28.6 pg (25.0-35.0); MCHC 32.9 g/dL (31.0-37.0); MCV 86.8 fL (80.0-100.0); Platelet Count 232 k/uL (150-450); RBC 4.05 m/uL (4.30-5.90); WBC 14.8 k/uL (3.8-10.6)
[2020-02-26 11:08] LABS: Albumin 3.5 g/dL (3.5-5.0); Calcium 8.9 mg/dL (8.4-10.2); Magnesium 1.9 mg/dL (1.6-2.3); Potassium 3.7 mmol/L (3.5-5.1); Total Bilirubin 0.4 mg/dL (0.2-1.3)
[2020-02-26 11:23] LABS: Appearance,Urine Clear (Clear); Bilirubin,Urine Negative (Negative); Blood,Urine Negative (Negative); Color,Urine Colorless; Glucose,Urine (UA) Negative (Negative); Ketones,Urine Negative (Negative); Leukocyte Esterase,Urine Negative (Negative); Nitrite,Urine Negative (Negative); Protein,Urine Negative (Negative); Specific Gravity,Urine 1.006 (1.001-1.035); Urobilinogen,Urine <2.0 mg/dL (<2.0)
--- NOTE | 2020-02-26 11:34 | XR ---
EXAMINATION TYPE: XR chest 2V DATE OF EXAM: 02/26/2020 COMPARISON: 02/19/2020 HISTORY: 64-year-old male elevated WBC TECHNIQUE: PA and lateral views FINDINGS: Heart normal size. Aorta and pulmonary vasculature within normal limits. Interstitial prominence bila terally without consolidation or pleural effusion. Right anterior chest wall injection port with cath eter tip at the lower SVC. IMPRESSION: Interstitial prominence appears largely chronic. Correlate for possible bronchitis or asthma. No foca l infiltrate seen.
[2020-02-26 11:36] LABS: Band Neutrophils % 4 %; Eosinophils # (M) 0.15 k/uL (0-0.7); Metamyelocytes # (M) 0.15 k/uL (0); Metamyelocytes % 1 %; Monocytes # (M) 1.48 k/uL (0-1.0); Myelocytes % 2 %; Neutrophils % (M) 81 %; Nucleated Red Blood Cells 0 /100 WBC (0-0); Total Cells Counted 200
[2020-02-26 11:37] LABS: Poikilocytosis (M) Present; Polychromasia Present; Toxic Granulation Present
[2020-02-26] MEDS ORDERED: ASPIRIN 81 MG PO STA (11:40)
--- NOTE | 2020-02-26 12:42 | CT ---
EXAMINATION TYPE: CT abdomen pelvis w con DATE OF EXAM: 02/26/2020 COMPARISON: 02/19/2020 HISTORY: Hypotensive, abnormal wbc CT DLP: 1721.7 mGycm Automated exposure control for dose reduction was used. CONTRAST: CT scan of the abdomen pelvis is performed with IV Contrast, patient injected with 80 mL of Isovue 30 0. FINDINGS- LUNG BASES-atherosclerotic change of the coronary arteries. Subsegmental linear changes at the lung b ases most of atelectasis. LIVER/GB- No gross abnormality is appreciated. PANCREAS- No gross abnormality is seen. SPLEEN- No gross abnormality is seen. ADRENALS-left adrenal gland not seen with certainty. Right adrenal gland demonstrates mild thickening . KIDNEYS/BLADDER-post left nephrectomy changes. Hypodensity within the right kidneys too small to ryne acterize. No hydronephrosis.. BOWEL-multiple diverticular seen and there is near complete resolution with marked improvement of the sigmoid diverticulitis. No evidence of obstruction. Appendix not identified.. LYMPH NODES- No greater than 1cm abdominal or pelvic lymph nodes areappreciated. OSSEOUS STRUCTURES- Facet arthropathy mid to lower lumbar spine. Dictation the lower thoracic spine. Grade 1 anterolisthesis L4-L5. OTHER- aorta of normal caliber. Small hiatal hernia seen. Postsurgical change involving anterior abd ominal wall small fatty anterior abdominal wall hernia. IMPRESSION- 1. Basilar subsegmental atelectasis versus pneumonitis. 2. There is interval marked improvement of the sigmoid diverticulitis. No abnormal fluid collections identified. 3. Post left nephrectomy. 4. Nonspecific right adrenal gland nodularity stable.
[2020-02-26] MEDS ORDERED: SODIUM CHLORIDE 0.9% 500 ML 500 ML IV ONE (12:48)
[2020-02-26] MEDS ORDERED: NALOXONE 0.4 MG/ML 1 ML VIAL IV PRN ×2 (12:58→14:56)
[2020-02-26] MEDS ORDERED: HYDROcodone/APAP 5-325MG 1 EACH TAB PO PRN (14:56)
[2020-02-26] MEDS ORDERED: ACETAMINOPHEN TAB 325 MG TAB PO PRN (14:56)
[2020-02-26] MEDS ORDERED: PROCHLORPERAZINE 5 MG TAB PO PRN (14:56)
[2020-02-26] MEDS ORDERED: MELATONIN 3 MG TABLET PO PRN (14:56)
[2020-02-26] MEDS ORDERED: PIPERACILLIN-TAZOBACTAM 3.375 GM in SODIUM CHLORIDE 0.9% 100 ML IVPB SCH (16:00)
--- NOTE | 2020-02-26 16:18 | P.HPIM ---
<Joel Nieto - Last Filed: 02/26/20 14:11> History of Present Illness H&P Date: 02/26/20 Chief Complaint: dizziness/lightheadedness History of presenting illness: Patient is a 64-year-old male with a past medical history of hypertension, COPD not home oxygen dependent (reports history of tobacco use smoking greater than one pack of cigarettes daily for 30 years quitting at the age of 48), renal carcinoma resulting in left-sided nephrectomy in remission 15 years, B-cell lymphoma currently undergoing his fourth round of chemotherapy with last dose being administered on 02/12/[address] Chinchilla, and diverticulosis with recent hospitalization for mild sepsis secondary to acute diverticulitis from 02/19/20 through 02/21/20 in which he was treated with IV antibiotics cefepime and flagyl prior to being discharged home on oral antibiotics: flagyl and ciprofloxa guillermo. Patient presented to [facility]'s emergency department today with a chief complaint of dizziness/lightheadedness and hypotension. Pt reports that over the past couple of days he has been experiencing dizziness and lightheadedness upon standing and that when he went to his PCP's office yesterday for a follow up post discharge he was told that his blood pressure was very low at 84/57. Pt states that his PCP jose some blood and sent him home, but called him today telling him to return to the hospital for concerns of sepsis secondary to having an elevated WBC count. Patient states that since discharge from the hospital on he has been taking his antibiotics as prescribed and has been eating and drinking okay, but did continue to have multiple episodes of diarrhea daily up until today when he reports having his first soft formed stool. Pt states that in addition to the diarrhea he was having, the lightheadedness and dizziness he was experiencing he personally associated this as being something to do with his blood pressure pills, stating that today he did not take his toresemide and he no longer had any dizziness or lightheadedness. Pt denies any other complaints including known fevers, chills, diaphoresis, headache, chest pain, palpitatations, cough, congestion, shortness of breath, abdominal pain or cramping, or experiencing any focal numbness/tingling/weakness or swelling. ED Course: Pt was seen and fully evaluated in the ED resulting in admission to general medical cardiac unit where he will provide continuous cardiac and close hemodynamic monitoring. Labs revealed patient to have leukocytosis with WBC count of 14.8 and normocytic normochromic anemia with a hemoglobin of 11.6 which is at baseline levels. Troponin was elevated with an initial troponin of 0.054 and repeat is 0.048. EKG revealing normal sinus rhythm at 90 bpm with a prolonged QT/QTC at 408/499 ms. No ischemic changes noted. CT abdomen and pelvis revealing basilar subsegmental atelectasis versus pneumonitis. Interval marked improvement of the sigmoid diverticulitis with no abnormal fluid collections identified. Chest x-ray revealing interstitial prominence appearing largely chronic. Correlate for possible bronchitis or asthma. No focal infiltrate seen. Review of systems: Pertinent positives and negatives as discussed in HPI, a complete review of systems was performed and all other systems are negative. Assessment: Physical Examination: General: non toxic, no distress, appears at stated age Derm: warm, dry Head: atraumatic, normocephalic, symmetric Eyes: EOMI, no lid lag, anicteric sclera Mouth: no lip lesion, mucus membranes moist Cardiovascular: S1S2 reg, no murmur, positive posterior tibial pulses bilaterally, no edema Lungs: CTA bilateral, no rhonchi, no rales, no wheezes and no accessory muscle use Abdominal: obese soft, nontender to palpation, no guarding, no appreciable organomegaly Ext: no gross muscle atrophy, no edema, no contractures Neuro: speech clear, no focal neuro deficits Psych: Alert, oriented, appropriate affect Plan of care: Elevated troponin -Elevation of troponin as evidenced by an initial troponin of 0.054 and repeat troponin of 0.048. -EKG revealing normal sinus rhythm at 90 bpm with a prolonged QT/QTC at 408/499 ms. No ischemic changes noted. -Patient being admitted to cardiac stepdown unit where he'll receive continuous cardiac and close hemodynamic monitoring. -We will trend troponins every 3 hours 2. -Continuous telemetry monitoring. -Consult to cardiology, Dr. Webber. -Echocardiogram to rule out chemotherapy induced cardiotoxicity resulting in left ventricular dysfunction or heart failure. Dizziness/lightheadedness -Dizziness and lightheadedness likely secondary to dehydration as evidenced by patient's reports of decreased oral fluids and repeated episodes of diarrhea over the past few days along with daily diuretic use with Torsemide. -We will continue with gentle hydration with 0.9% normal saline. -Hold Torosemide. -Orthostatic vitals -Telemetry monitoring -Fall precautions -Echocardiogram Hypertension, patient recently experienced hypotension -Monitor vital signs and continue daily medication management. -We will hold Torsemide and place patient on gentle hydration secondary to patient's reports of dizziness/lightheadedness and hypotension he reportedly experienced while at the PCP. -Orthostatic vitals and fall precautions in place. Leukocytosis -Leukocytosis with WBC count of 14.8. -Leukocytosis likely reactive secondary to dehydration as pt reports decreased oral fluid intake accompanied by diarrhea and daily use of Torosemide. -CT abdomen and pelvis without contrast revealing basilar subsegmental atelectasis versus pneumonitis with interval marked improvement of the sigmoid diverticulitis with no abnormal fluid collections identified. B-cell lymphoma -Patient to continue to follow up outpatient with Dr. Chinchilla as scheduled. -Continued close monitoring with repeat a.m. labs. COPD, stable -Patient to be provided with oxygenation as needed to maintain SpO2 equal to or greater than 92%. -Encourage incentive spirometry. CODE STATUS: Full code DVT prophylaxis: Lovenox Home meds reviewed and ordered. Patient does not have DPOA, but would like his Zulma to make decisions in the event he cannot. Discussed plan of care with both patient and over the phone with his . A total of 45 minutes was spent on the care of this complex patient and more than 50% of the time was spent in counseling and care coordination. 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, first chemo treatment 12/12 at [facility], renal cancer Left kidney stage IV F eb 2004 - left kidney removed, Gout History of Any Multi-Drug Resistant Organisms: None Reported Past Surgical History: Adenoidectomy, Appendectomy, Hernia Repair, Tonsillectomy Additional Past Surgical History / Comment(s): left kidney removed Past Anesthesia/Blood Transfusion Reactions: No Reported Reaction Past Psychological History: No Psychological Hx Reported Smoking Status: Former smoker Past Alcohol Use History: Occasional Past Drug Use History: None Reported - Past Family History Father Family Medical History: Congestive Heart Failure (CHF) Mother Additional Family Medical History / Comment(s): old age Medications and Allergies Home Medications Medication Instructions Recorded Confirmed Type Allopurinol [Zyloprim] 100 mg PO DAILY 11/10/20 01/12/21 History Torsemide [Demadex] 30 mg PO DAILY 12/25/19 02/26/20 History amLODIPine [Norvasc] 10 mg PO DAILY 12/25/19 02/26/20 History lisinopriL 40 mg PO DAILY 12/25/19 02/26/20 History Atorvastatin [Lipitor] 20 mg PO HS 02/26/20 02/26/20 History Allergies Allergy/AdvReac Type Severity Reaction Status Date / Time acetaminophen [From Tylenol] Allergy Anaphylaxis Verified 02/26/20 11:16 adhesive tape Allergy BLISTERS Verified 02/26/20 11:16 Physical Exam Vitals: Vital Signs Temp Pulse Resp BP Pulse Ox 02/26/20 13:27 98.3 F 81 18 108/71 98 02/26/20 13:11 81 18 108/71 98 02/26/20 12:00 83 18 107/71 96 02/26/20 11:00 86 18 109/66 98 02/26/20 10:52 86 18 93/68 98 02/26/20 09:34 98.3 F 112 H 18 111/72 98 Intake and Output 02/25/20 02/26/20 02/26/20 22:59 06:59 14:59 Other: Weight 106.141 kg Results CBC & Chem 7: 02/26/20 10:22 02/26/20 10:22 Labs: Abnormal Lab Results - Last 24 Hours (Table) 02/26/20 02/26/20 02/26/20 Range/Units 10:22 10:22 10:22 WBC 14.8 H (3.8-10.6) k/uL RBC 4.05 L (4.30-5.90) m/uL Hgb 11.6 L (13.0-17.5) gm/dL Hct 35.1 L (39.0-53.0) % RDW 18.0 H (11.5-15.5) % Neutrophils # (Manual) 12.50 H (1.3-7.7) k/uL Lymphocytes # (Manual) 0.30 L (1.0-4.8) k/uL Monocytes # (Manual) 1.48 H (0-1.0) k/uL Metamyelocytes # (Man) 0.15 H (0) k/uL Myelocytes # (Manual) 0.30 H (0) k/uL Glucose 109 H (74-99) mg/dL Troponin I 0.054 H* (0.000-0.034) ng/mL Total Protein 6.0 L (6.3-8.2) g/dL 02/26/20 Range/Units 13:11 WBC (3.8-10.6) k/uL RBC (4.30-5.90) m/uL Hgb (13.0-17.5) gm/dL Hct (39.0-53.0) % RDW (11.5-15.5) % Neutrophils # (Manual) (1.3-7.7) k/uL Lymphocytes # (Manual) (1.0-4.8) k/uL Monocytes # (Manual) (0-1.0) k/uL Metamyelocytes # (Man) (0) k/uL Myelocytes # (Manual) (0) k/uL Glucose (74-99) mg/dL Troponin I 0.048 H* (0.000-0.034) ng/mL Total Protein (6.3-8.2) g/dL <OliMessinoam - Last Filed: 02/26/20 16:41> Physical Exam Osteopathic Statement: *. No significant issues noted on an osteopathic structural exam other than those noted in the History and Physical/Consult. Vitals: Vital Signs Temp Pulse Pulse Resp BP BP Pulse Ox 02/26/20 15:47 98.1 F 75 18 111/59 98 02/26/20 14:00 18 02/26/20 13:27 98.3 F 81 18 108/71 98 02/26/20 13:11 81 18 108/71 98 02/26/20 12:00 83 18 107/71 96 02/26/20 11:00 86 18 109/66 98 02/26/20 10:52 86 18 93/68 98 02/26/20 09:34 98.3 F 112 H 18 111/72 98 Intake and Output 02/26/20 02/26/20 02/26/20 06:59 14:59 22:59 Other: Voiding Method Toilet Weight 106.141 kg Results CBC & Chem 7: 02/26/20 10:22 02/26/20 10:22 Labs: Abnormal Lab Results - Last 24 Hours (Table) 02/26/20 02/26/20 02/26/20 Range/Units 10:22 10:22 10:22 WBC 14.8 H (3.8-10.6) k/uL RBC 4.05 L (4.30-5.90) m/uL Hgb 11.6 L (13.0-17.5) gm/dL Hct 35.1 L (39.0-53.0) % RDW 18.0 H (11.5-15.5) % Neutrophils # (Manual) 12.50 H (1.3-7.7) k/uL Lymphocytes # (Manual) 0.30 L (1.0-4.8) k/uL Monocytes # (Manual) 1.48 H (0-1.0) k/uL Metamyelocytes # (Man) 0.15 H (0) k/uL Myelocytes # (Manual) 0.30 H (0) k/uL Glucose 109 H (74-99) mg/dL Troponin I 0.054 H* (0.000-0.034) ng/mL Total Protein 6.0 L (6.3-8.2) g/dL 02/26/20 Range/Units 13:11 WBC (3.8-10.6) k/uL RBC (4.30-5.90) m/uL Hgb (13.0-17.5) gm/dL Hct (39.0-53.0) % RDW (11.5-15.5) % Neutrophils # (Manual) (1.3-7.7) k/uL Lymphocytes # (Manual) (1.0-4.8) k/uL Monocytes # (Manual) (0-1.0) k/uL Metamyelocytes # (Man) (0) k/uL Myelocytes # (Manual) (0) k/uL Glucose (74-99) mg/dL Troponin I 0.048 H* (0.000-0.034) ng/mL Total Protein (6.3-8.2) g/dL Assessment and Plan Assessment: I saw the patient independently and reviewed the plan of care with our [employer] and ag ree with the documented assessment and plan.
[2020-02-26] MEDS: metroNIDAZOLE 500 MG TAB PO SCH ×2 (17:29→20:06)
[2020-02-26] MEDS: CIPROFLOXACIN HCL 500 MG TAB PO SCH (20:05)
[2020-02-27] MEDS: ATORVASTATIN 20 MG TAB PO SCH ×2 (00:36→20:35)
[2020-02-27] MEDS: SODIUM CHLORIDE 0.9% 1,000 ML IV SCH ×3 (06:43→20:36)
[2020-02-27 08:06] LABS: Anisocytosis Slight; Basophils # (A) 0.1 k/uL (0-0.2); Basophils % (A) 1 %; Eosinophils % (A) 0 %; HCT 34.4 % (39.0-53.0); Hypochromasia Slight; Lymphocytes # (A) 0.4 k/uL (1.0-4.8); Lymphocytes % (A) 4 %; MCH 28.3 pg (25.0-35.0); MCHC 31.8 g/dL (31.0-37.0); MCV 88.9 fL (80.0-100.0); Mean Platelet Volume 7.8; Monocytes # (A) 0.6 k/uL (0-1.0); Monocytes % (A) 5 %; Neutrophils # (A) 9.7 k/uL (1.3-7.7); Neutrophils % (A) 88 %; Platelet Count 231 k/uL (150-450); RBC 3.87 m/uL (4.30-5.90)
[2020-02-27 08:15] LABS: Calcium 8.6 mg/dL (8.4-10.2); Potassium 3.7 mmol/L (3.5-5.1)
[2020-02-27] MEDS: allopurinoL 100 MG TAB PO SCH (08:27)
[2020-02-27] MEDS: ENOXAPARIN 40 MG/0.4 ML SYRINGE SQ SCH (08:27)
[2020-02-27] MEDS: CIPROFLOXACIN HCL 500 MG TAB PO SCH ×2 (08:27→20:35)
[2020-02-27] MEDS: amLODIPine 10 MG TAB PO SCH ×2 (08:27→08:29)
[2020-02-27] MEDS: metroNIDAZOLE 500 MG TAB PO SCH ×3 (08:27→20:35)
[2020-02-27] MEDS: lisinopriL 20 MG TAB PO SCH (08:27)
--- NOTE | 2020-02-27 13:13 | P.PN ---
Subjective Progress Note Date: 02/27/20 Patient is a 64-year-old male with a past medical history of hypertension, COPD not home oxygen dependent (reports history of tobacco use smoking greater than one pack of cigarettes daily for 30 years quitting at the age of 48), renal carcinoma resulting in left-sided nephrectomy in remission 15 years, B-cell lymphoma currently undergoing his fourth round of chemotherapy with last dose being administered on 02/12/[address] Chinchilla, and diverticulosis with recent hospitalization for mild sepsis secondary to acute diverticulitis from 02/19/20 through 02/21/20 in which he was treated with IV antibiotics cefepime and flagyl prior to being discharged home on oral antibiotics: flagyl and ciprofloxa guillermo. Patient presented to [facility]'s emergency department today with a chief complaint of dizziness/lightheadedness and hypotension. Pt reports that over the past couple of days he has been experiencing dizziness and lightheadedness upon standing and that when he went to his PCP's office yesterday for a follow up post discharge he was told that his blood pressure was very low at 84/57. Pt states that his PCP jose some blood and sent him home, but called him today telling him to return to the hospital for concerns of sepsis secondary to having an elevated WBC count. Patient states that since discharge from the hospital on he has been taking his antibiotics as prescribed and has been eating and drinking okay, but did continue to have multiple episodes of diarrhea daily up until today when he reports having his first soft formed stool. Pt states that in addition to the diarrhea he was having, the lightheadedness and dizziness he was experiencing he personally associated this as being something to do with his blood pressure pills, stating that today he did not take his toresemide and he no longer had any dizziness or lightheadedness. Pt denies any other complaints including known fevers, chills, diaphoresis, headache, chest pain, palpitatations, cough, congestion, shortness of breath, abdominal pain or cramping, or experiencing any focal numbness/tingling/weakness or swelling. 02/26/20: Pt was seen and fully evaluated in the ED resulting in admission to general medical cardiac unit where he will provide continuous cardiac and close hemodynamic monitoring. Labs revealed patient to have leukocytosis with WBC count of 14.8 and normocytic normochromic anemia with a hemoglobin of 11.6 which is at baseline levels. Troponin was elevated with an initial troponin of 0.054 and repeat is 0.048. EKG revealing normal sinus rhythm at 90 bpm with a prolonge d QT/QTC at 408/499 ms. No ischemic changes noted. CT abdomen and pelvis revealing basilar subsegmental atelectasis versus pneumonitis. Interval marked improvement of the sigmoid diverticulitis with no abnormal fluid collections identified. Chest x-ray revealing interstitial prominence appearing largely chronic. Correlate for possible bronchitis or asthma. No focal infiltrate seen. 02/27/20: Patient was seen and fully evaluated at the bedside. He reports his dizziness/lightheadedness has resolved and denies any further episodes of diarrhea reporting stool is soft and formed. Patient reports feeling well since admission denying having any headache, changes in vision, changes in hearing, tinnitus, cough or congestion, chest pain or palpitations, shortness of breath, abdominal pain, nausea, vomiting, or any other complaints at this time. Patient has been receiving gentle hydration with 0.9% normal saline at 130 miL/hr since admission, we will continue with gentle hydration but decrease rate to 75 miles per hour while awaiting echocardiogram results. Vital signs have been stable a nd patient has had no further episodes of hypotension. Discussed with RN need for orthostatic vitals and awaiting completion at this time. Patient's leukocytosis has improved as suspected with gentle hydration and is down to 11.0 today. His troponins continued to be elevated with initial troponin of 0.054 and repeat troponins of 0.048 and 0.070. Patient continues to deny any chest pain, shortness of breath, or swelling in lower extremities. Echocardiogram was completed and awaiting results and evaluation by cardiology at this time. Objective - Vital Signs Vital signs: Vital Signs Temp 98.6 F 02/27/20 08:00 Pulse 86 02/27/20 08:00 Resp 17 02/27/20 08:00 BP 113/61 02/27/20 08:00 Pulse Ox 96 02/27/20 08:00 Intake & Output 02/26/20 02/27/20 02/27/20 18:59 06:59 18:59 Intake Total 240 236 Balance 240 236 Weight 106.141 kg 106.3 kg Intake: Oral 240 236 Other: Voiding Method Toilet Toilet # Voids 1 - Exam Physical Examination: General: non toxic, no distress, appears at stated age Derm: warm, dry Head: atraumatic, normocephalic, symmetric Eyes: EOMI, no lid lag, anicteric sclera Mouth: no lip lesion, mucus membranes moist Cardiovascular: S1S2 reg, no murmur, positive posterior tibial pulses bilaterally, no edema Lungs: CTA bilateral, no rhonchi, no rales, no wheezes and no accessory muscle use Abdominal: obese soft, nontender to palpation, no guarding, no appreciable organomegaly Ext: no gross muscle atrophy, no edema, no contractures Neuro: speech clear, no focal neuro deficits Psych: Alert, oriented, appropriate affect - Labs CBC & Chem 7: 02/27/20 07:42 02/27/20 07:42 Labs: Abnormal Lab Results - Last 24 Hours (Table) 02/26/20 02/26/20 02/27/20 Range/Units 13:11 21:34 07:42 WBC (3.8-10.6) k/uL RBC (4.30-5.90) m/uL Hgb (13.0-17.5) gm/dL Hct (39.0-53.0) % RDW (11.5-15.5) % Neutrophils # (1.3-7.7) k/uL Lymphocytes # (1.0-4.8) k/uL Glucose (74-99) mg/dL Troponin I 0.048 H* 0.070 H* (0.000-0.034) ng/mL Procalcitonin 0.15 H (0.02-0.09) ng/mL 02/27/20 02/27/20 Range/Units 07:42 07:42 WBC 11.0 H (3.8-10.6) k/uL RBC 3.87 L (4.30-5.90) m/uL Hgb 11.0 L (13.0-17.5) gm/dL Hct 34.4 L (39.0-53.0) % RDW 18.0 H (11.5-15.5) % Neutrophils # 9.7 H (1.3-7.7) k/uL Lymphocytes # 0.4 L (1.0-4.8) k/uL Glucose 149 H (74-99) mg/dL Troponin I (0.000-0.034) ng/mL Procalcitonin (0.02-0.09) ng/mL Microbiology - Last 24 Hours (Table) 02/26/20 10:22 Blood Culture - Preliminary Blood No Growth after 24 hours Assessment and Plan Plan: Plan of care: Elevated troponin -Elevation of troponin as evidenced by an initial troponin of 0.054 with repeat troponins of 0.048 and 0.070. -Pt continues to deny having any chest pain or shortness of breath. -EKG revealing normal sinus rhythm at 90 bpm with a prolonged QT/QTC at 408/499 ms. No ischemic changes noted. -We will continue with continuous telemetry monitoring. -Echocardiogram was completed to rule out chemotherapy induced cardiotoxicity resulting in left ventricular dysfunction or heart failure and these results are pending. -Continuous telemetry monitoring. -Consult to cardiology, Dr. Webber and appreciate recommendations. Dizziness/lightheadedness, resolved -Dizziness and lightheadedness was likely secondary to hypotension resulting from dehydration as evidenced by patient's reports of decreased oral fluids and repeated episodes of diarrhea over the past few days along with daily diuretic use with Torsemide. -We will continue to hold Torsemide and continue with gentle hydration with 0.9% normal saline decreasing rate to 75 mL/hour at this time while awaiting echo results. . -Orthostatic vitals -Telemetry monitoring -Fall precautions -Echocardiogram completed, results pending. Hypertension, stable -Monitor vital signs and continue daily medication management. -We will hold Torsemide and place patient on gentle hydration secondary to patient's reports of dizziness/lightheadedness and hypotension he reportedly experienced while at the PCP. -Orthostatic vitals and fall precautions in place. -VSS have been stable since admission, we have held torsemide and will likely d iscontinue this medication upon discharge, pending echo results and further recommendations by cardiology. Leukocytosis, improving -Leukocytosis with WBC count of 14.8. This is improving with holding of Torsemide accompanied by gentle hydration. -Leukocytosis likely reactive secondary to dehydration as pt reports decreased oral fluid intake accompanied by diarrhea and daily use of Torosemide. -CT abdomen and pelvis without contrast revealing basilar subsegmental atelectasis versus pneumonitis with interval marked improvement of the sigmoid diverticulitis with no abnormal fluid collections identified. B-cell lymphoma -Patient to continue to follow up outpatient with Dr. Chinchilla as scheduled. -Continued close monitoring with repeat a.m. labs. COPD, stable -Patient to be provided with oxygenation as needed to maintain SpO2 equal to or greater than 92%. -Encourage incentive spirometry. CODE STATUS: Full code DVT prophylaxis: Lovenox Home meds reviewed and ordered. Patient does not have DPOA, but would like his Zulma to make decisions in the event he cannot. Discussed plan of care with both patient and over the phone with his . Plan for discharge: Plan to discharge home in 1-2 days pending echocardiogram result and further recommendations by cardiology. A total of 35 minutes was spent on the care of this complex patient and more than 50% of the time was spent in counseling and care coordination.
--- NOTE | 2020-02-27 14:02 | P.CRDCN ---
History of Present Illness Consult date: 02/27/20 History of present illness: CHIEF COMPLAINT: Abnormal troponin HISTORY OF PRESENT ILLNESS: This is a 64-year-old male with a past medical history significant for hypertension, hyperlipidemia, former nicotine dependence, left kidney cancer with nephrectomy in 2004, lymphoma and currently undergoing chemotherapy. Patient follows in the office with Dr. Robertson. We have been asked to see the patient in consultation for abnormal troponins. Patient examined at this point the bedside. Patient states he was hospitalized last wee k and diagnosed with diverticulitis. Patient states he was sent home with antibiotics. He had a follow-up appointment with his physician earlier this week and his blood pressure was found to be 84/59 at his appointment. He states he was dizzy and lightheaded at the time. His primary care physician told him to hold his Norvasc. He had blood work completed at that appointment and was found to have leukocytosis. He was contacted by his primary care physician and injected to come to the hospital. Patient states he was eating and drinking well at home but he reports having diarrhea for 2 days. He states he continue taking all of his medications including his diuretics but continued to hold his Norvasc. Patient denies any chest pain or pressure. He denies shortness of breath. He states his dizziness and lightheadedness has resolved. DIAGNOSTICS: EKG reveals sinus mechanism with no signs of acute ischemia Chest xray interstitial prominence appears largely chronic. Correlate for possible bronchitis or asthma. No focal infiltrates seen. Laboratory data: W BC 11.0. Hemoglobin 11.0. Platelet count 231. Sodium 139. Potassium 3.7. BUN 14. Creatinine 1.3. Troponin 0.054. 0.048. 0.074. Current home cardiac medications include Lipitor 20 mg daily, lisinopril 40 mg daily, amlodipine 10 g daily, Demadex 30 mg daily Charmaine scan performed in February 2019 was negative for reversible ischemia Echocardiogram completed in February 2019 revealed ejection fraction of 50% REVIEW OF SYSTEMS: At the time of my exam: CONSTITUTIONAL: Denies fever or chills. HEENT: Denies blurred vision, vision changes, or eye pain. Denies hemoptysis CARDIOVASCULAR: Denies chest pain, orthopnea, PND or palpitations RESPIRATORY: No shortness of breath. GASTROINTESTINAL: Denies abdominal pain. Denies nausea or vomiting. HEMATOLOGIC: Denies bleeding disorders. GENITOURINARY: Denies any blood in urine. SKIN: Denies pruitis. Denies rash. PHYSICAL EXAM: VITAL SIGNS: Reviewed. GENERAL: Well-developed in no acute distress. HEENT: Head is normocephalic. Pupils are equal, round. Sclerae anicteric. Mucous membranes of the mouth are moist. Neck supple. No JVD or thyromegaly LUNGS: Respirations even and unlabored. Lungs essentially clear to auscultation bilaterally. HEART: Regular rate and rhythm. S1 and S2 heard. ABDOMEN: Soft. Nondistended. Nontender. EXTREMITIES: Normal range of motion. No clubbing or cyanosis. Peripheral pulses intact. No lower extremity edema NEUROLOGIC: Awake and alert. Oriented x 3. ASSESSMENT: Leukocytosis Abnormal troponins, not suggestive of acute coronary syndrome Dizziness, secondary to hypotension, resolved Hypertension Hyperlipidemia History of left kidney cancer status post nephrectomy 2004 B-cell lymphoma Recent diagnosis of diverticulitis Former nicotine dependence PLAN: An acute coronary event has been ruled out Patient currently receiving IV fluids. May continue to hold Demadex at this time. May resume Demadex at discharge Continue additional cardiac medications Obtain 2-D echo to assess cardiac structure and function Patient may be discharged home today from a cardiac standpoint pending echo results. He is to follow up outpatient with Dr. Robertson Nurse practitioner note has been reviewed by physician. Signing provider agrees with the documented findings, assessment, and plan of care. 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, first chemo treatment 12/12 at [facility] [place], renal cancer Left kidney stage IV Mar 2004 - left kidney removed, Gout History of Any Multi-Drug Resistant Organisms: None Reported Past Surgical History: Adenoidectomy, Appendectomy, Hernia Repair, Tonsillectomy Additional Past Surgical History / Comment(s): left kidney removed Past Anesthesia/Blood Transfusion Reactions: No Reported Reaction Past Psychological History: No Psychological Hx Reported Smoking Status: Former smoker Past Alcohol Use History: Occasional Past Drug Use History: None Reported - Past Family History Father Family Medical History: Congestive Heart Failure (CHF) Mother Additional Family Medical History / Comment(s): old age Medications and Allergies Home Medications Medication Instructions Recorded Confirmed Type Allopurinol [Zyloprim] 100 mg PO DAILY 12/25/19 02/26/20 History Torsemide [Demadex] 30 mg PO DAILY 12/25/19 02/26/20 History amLODIPine [Norvasc] 10 mg PO DAILY 12/25/19 02/26/20 History lisinopriL 40 mg PO DAILY 12/25/19 02/26/20 History Atorvastatin [Lipitor] 20 mg PO HS 02/26/20 02/26/20 History Allergies Allergy/AdvReac Type Severity Reaction Status Date / Time acetaminophen [From Tylenol] Allergy Anaphylaxis Verified 02/26/20 11:16 adhesive tape Allergy BLISTERS Verified 02/26/20 11:16 Physical Exam Vitals: Vital Signs Temp Pulse Resp BP BP BP BP 02/27/20 12:00 86 18 128/71 133/74 112/60 02/27/20 08:00 98.6 F 86 17 113/61 02/27/20 04:00 98.2 F 83 16 120/76 02/27/20 01:40 88 18 02/26/20 23:52 100 F H 99 17 126/75 02/26/20 20:00 99.5 F 91 17 120/63 02/26/20 15:47 98.1 F 75 18 111/59 02/26/20 14:00 18 Pulse Ox 02/27/20 12:00 96 02/27/20 08:00 96 02/27/20 04:00 97 02/27/20 01:40 02/26/20 23:52 94 L 02/26/20 20:00 94 L 02/26/20 15:47 98 02/26/20 14:00 Intake and Output 02/26/20 02/27/20 02/27/20 22:59 06:59 14:59 Intake Total 240 236 Balance 240 236 Intake: Oral 240 236 Other: Voiding Method Toilet Toilet # Voids 1 1 Weight 106.3 kg Results 02/27/20 07:42 02/27/20 07:42 Cardiac Enzymes 02/26/20 02/26/20 Range/Units 13:11 21:34 Troponin I 0.048 H* 0.070 H* (0.000-0.034) ng/mL CBC 02/27/20 Range/Units 07:42 WBC 11.0 H (3.8-10.6) k/uL RBC 3.87 L (4.30-5.90) m/uL Hgb 11.0 L (13.0-17.5) gm/dL Hct 34.4 L (39.0-53.0) % Plt Count 231 (150-450) k/uL Comprehensive Metabolic Panel 02/27/20 Range/Units 07:42 Sodium 139 (137-145) mmol/L Potassium 3.7 (3.5-5.1) mmol/L Chloride 106 (98-107) mmol/L Carbon Dioxide 28 (22-30) mmol/L BUN 14 (9-20) mg/dL Creatinine 1.13 (0.66-1.25) mg/dL Glucose 149 H (74-99) mg/dL Calcium 8.6 (8.4-10.2) mg/dL Current Medications Generic Name Dose Route Start Last Admin Trade Name Freq PRN Reason Stop Dose Admin Allopurinol 100 mg 02/27/20 09:00 02/27/20 08:27 Allopurinol 100 Mg Tab PO 100 mg DAILY CAS Administration Amlodipine Besylate 10 mg 02/27/20 09:00 02/27/20 08:29 Amlodipine 10 Mg Tab PO Not Given DAILY CAS Atorvastatin Calcium 20 mg 02/26/20 21:00 02/27/20 00:36 Atorvastatin 20 Mg Tab PO Not Given HS CAS Ciprofloxacin 500 mg 02/26/20 21:00 02/27/20 08:27 Ciprofloxacin Hcl 500 Mg Tab PO 500 mg BID CAS Administration Enoxaparin Sodium 40 mg 02/27/20 09:00 02/27/20 08:27 Enoxaparin 40 Mg/0.4 Ml Syringe SQ 40 mg DAILY CAS Administration Sodium Chloride 1,000 mls @ 75 mls/hr 02/26/20 10:30 02/27/20 11:18 Saline 0.9% IV 130 mls/hr .[id number] CAS Administration Lisinopril 40 mg 02/27/20 09:00 02/27/20 08:27 Lisinopril 20 Mg Tab PO 40 mg DAILY CAS Administration Melatonin 3 mg 02/26/20 14:56 02/27/20 00:37 Melatonin 3 Mg Tablet PO 3 mg HS PRN Administration Insomnia Metronidazole 500 mg 02/26/20 16:00 02/27/20 08:27 Metronidazole 500 Mg Tab PO 500 mg TID CAS Administration Naloxone HCl 0.2 mg 02/26/20 12:58 Naloxone 0.4 Mg/Ml 1 Ml Vial IV Q2M PRN Opioid Reversal Prochlorperazine Maleate 5 mg 02/26/20 14:56 Prochlorperazine 5 Mg Tab PO Q8HR PRN Nausea And Vomiting Intake and Output 02/26/20 02/27/20 02/27/20 22:59 06:59 14:59 Intake Total 240 236 Balance 240 236 Intake: Oral 240 236 Other: Voiding Method Toilet Toilet # Voids 1 1 Weight 106.3 kg 02/27/20 07:42 02/27/20 07:42
--- NOTE | 2020-02-27 17:09 | ECHOF ---
Referral Reason:elevated cardiac enzymes, pt on chemo MEASUREMENTS -------- HEIGHT: 165.1 cm WEIGHT: 106.1 kg BP: RVIDd: 3.6 cm (< 3.3) IVSd: 1.5 cm (0.6 - 1.1) LVIDd: 3.4 cm (3.9 - 5.3) LVPWd: 1.0 cm (0.6 - 1.1) IVSs: 1.7 cm LVIDs: 1.9 cm LVPWs: 1.4 cm LA Diam: 3.1 cm (2.7 - 3.8) Ao Diam: 3.4 cm (2.0 - 3.7) AV Cusp: 2.2 cm (1.5 - 2.6) MV EXCURSION: 21.866 mm (> 18.000) MV EF SLOPE: 82 mm/s (70 - 150) EPSS: 0.6 cm MV E Bao: 0.55 m/s MV DecT: 204 ms MV A Bao: 0.68 m/s MV E/A Ratio: 0.81 RAP: 5.00 mmHg RVSP: 12.89 mmHg FINDINGS -------- Sinus rhythm. This was a technically adequate study. The left ventricular size is normal. There is moderate concentric left ventricular hypertrophy. O verall left ventricular systolic function is low-normal with, an EF between 50 - 55 %. The right ventricle is normal in size. The left atrial size is normal. The right atrial size is normal. There is mild aortic valve sclerosis. There is no evidence of aortic regurgitation. Mild mitral regurgitation is present. Mild tricuspid regurgitation present. Right ventricular systolic pressure is normal at < 35 mmHg. The pulmonic valve was not well visualized. The aortic root size is normal. There is no pericardial effusion. CONCLUSIONS -------- 1. The left ventricular size is normal. 2. There is moderate concentric left ventricular hypertrophy. 3. Overall left ventricular systolic function is low-normal with, an EF between 50 - 55 %. 4. The right ventricle is normal in size. 5. The left atrial size is normal. 6. The right atrial size is normal. 7. There is mild aortic valve sclerosis. 8. Mild mitral regurgitation is present. 9. Mild tricuspid regurgitation present. 10. The pulmonic valve was not well visualized. 11. The aortic root size is normal. 12. There is no pericardial effusion. RUCHING MACHINE OPERATOR: Manuela Yarbrough RDCS
[2020-02-28 04:21] VITALS: PULSE 84
[2020-02-28 08:22] VITALS: BP 134/77; RESP 20; TEMP 98.2
[2020-02-28] MEDS: lisinopriL 20 MG TAB PO SCH (08:25)
[2020-02-28] MEDS: allopurinoL 100 MG TAB PO SCH (08:26)
[2020-02-28] MEDS: ENOXAPARIN 40 MG/0.4 ML SYRINGE SQ SCH (08:26)
[2020-02-28] MEDS: metroNIDAZOLE 500 MG TAB PO SCH (08:26)
[2020-02-28] MEDS: CIPROFLOXACIN HCL 500 MG TAB PO SCH (08:26)
[2020-02-28] MEDS: amLODIPine 10 MG TAB PO SCH ×2 (08:26→08:29)
--- NOTE | 2020-02-28 12:35 | P.DS ---
Providers Date of admission: 02/26/20 12:59 Expected date of discharge: 02/28/20 Attending physician: Yoseph Baird MD Consults: 02/26/20 13:00 Consult Physician Routine Consulting Provider: Calixto Webber Consult Reason/Comments: elevated trop, leukocytosis. Do you want consulting provider notified?: Yes Primary care physician: [facility] Course: Patient presented to [facility] on 02/26/20 with a chief complaint of dizziness and hypotension. Patient was recently discharged from two night stay in hospital for diverticulitis from 02/19/20 through 02/21/20 and discharged home on oral antibiotics Flagyl and ciprofloxacin. Patient reports that he continued to have diarrhea for 4 days prior to returning to his PCP for checkup. Patient states when he got to his PCPs office he was hypotensive and tachycardic and was recommended to return to the emergency department for further evaluation. Patient was found to have mild leukocytosis with WBC count of 14.[address] of his abdomen and pelvis was completed revealing marked improvement of his sigmoid diverticulitis with no abnormal fluid collections identified. Upon further investigation, it was noted that patient not only continued with multiple episodes of diarrhea daily but also continued taking his daily diuretic Torsemide over the past 4 days. Pt appeared very dry and was found to have elevated troponin levels. He was admitted for cardiac work-up and re-hydration. Elevated troponin, likely non-thrombotic troponin leak secondary to hypotension -Elevation of troponin as evidenced by an initial troponin of 0.054 with repeat troponins of 0.048 and 0.070. -Pt was asymptomatic denying having any chest pains or shortness of breath. -EKG revealing normal sinus rhythm at 90 bpm with a prolonged QT/QTC at 408/499 ms. No ischemic changes noted. -Patient evaluated and cleared for discharge by cardiology, instructing patient to resume torsemide upon discharge. -Echocardiogram was completed to rule out chemotherapy induced cardiotoxicity, echocardiogram revealed an EF of 50-55% with moderate concentric left ve ntricular hypertrophy, mild aortic valve stenosis, and mild mitral and tricuspid valve regurgitation. -Patient to follow-up outpatient with Dr. Webber as previously scheduled. Dizziness/lightheadedness secondary to dehydration resulting in hypotension, resolved -Orthostatic vitals were negative Hypertension, pt was hypotensive upon admission, now stable after medication changes. -Discontinue Norvasc and resume Torsemide upon discharge Leukocytosis likely reactive resulting from dehydration, improved B-cell lymphoma -Patient to continue to follow up outpatient with Dr. Chinchilla as scheduled for close monitoring and chemotherapy treatments. COPD, stable -Continue incentive spirometry 10-15x daily after discharge. Physical examination: Patient was seen and fully evaluated at the bedside, reports feeling "fantastic" today and ready to go home. Patient denies having any complaints this morning including headache, lightheadedness, dizziness, changes in vision or hearing, chest pain, palpitations, shortness of breath, dyspnea with exertion, cough, congestion, nausea, vomiting, abdominal pain, or any further episodes of diarrhea reporting normal soft formed stool. Patient was updated on discharge and given discharge instructions that he will be completed with his antibiotic course with ciprofloxacin and Flagyl this evening and will continue to follow-up as previously scheduled with fashion styling intern, gizzard peeler, oncologist, and PCP. General: non toxic, no distress, appears at stated age Derm: warm, dry Head: atraumatic, normocephalic, symmetric Eyes: EOMI, no lid lag, anicteric sclera Mouth: no lip lesion, mucus membranes moist Cardiovascular: S1S2 reg, no murmur, positive posterior tibial pulses bilaterally, no edema Lungs: CTA bilateral, no rhonchi, no rales, no wheezes and no accessory muscle use Abdominal: obese soft, nontender to palpation, no guarding, no appreciable organomegaly Ext: no gross muscle atrophy, no edema, no contractures Neuro: speech clear, no focal neuro deficits Psych: Alert, oriented, appropriate affect A total of 35 minutes was spent on the discharge care of this complex patient and more than 50% of the time was spent in counseling and care coordination. Patient Condition at Discharge: Stable Plan - Discharge Summary Discharge Rx Participant: No New Discharge Prescriptions: Continue lisinopriL 40 mg PO DAILY Allopurinol [Zyloprim] 100 mg PO DAILY Torsemide [Demadex] 30 mg PO DAILY Atorvastatin [Lipitor] 20 mg PO HS Discontinued amLODIPine [Norvasc] 10 mg PO DAILY Discharge Medication List Allopurinol [Zyloprim] 100 mg PO DAILY 12/25/19 [History] Torsemide [Demadex] 30 mg PO DAILY 12/25/19 [History] lisinopriL 40 mg PO DAILY 12/25/19 [History] Atorvastatin [Lipitor] 20 mg PO HS 02/26/20 [History] Follow up Appointment(s)/Referral(s): Seng Arvizu [Primary Care Provider] - 03/05/20 4:00 pm Patient Instructions/Handouts: Hypotension (DC) Activity/Diet/Wound Care/Special Instructions: Activity: As Tolerated Diet: Heart healthy Special Instructions: Follow up with PCP in 1-2 days. Discharge Disposition: HOME SELF-CARE
== END 2020-02-28 11:05 | disposition home or self-care (01) ==
LOC: EC 09:31 → 3SCARD 12:59
PROVIDERS: ADMIT Internal Medicine; ATTEND Internal Medicine
DX: I95.9 Hypotension, unspecified (principal); R77.8 Other specified abnormalities of plasma proteins; R94.31 Abnormal electrocardiogram [ECG] [EKG]; E86.0 Dehydration; I10 Essential (primary) hypertension; K57.32 Diverticulitis of large intestine without perforation or abscess without bleeding; D72.829 Elevated white blood cell count, unspecified; C85.10 Unspecified B-cell lymphoma, unspecified site; J44.9 Chronic obstructive pulmonary disease, unspecified; M10.9 Gout, unspecified; I08.3 Combined rheumatic disorders of mitral, aortic and tricuspid valves; R91.8 Other nonspecific abnormal finding of lung field; Z20.828 Contact with and (suspected) exposure to other viral communicable diseases; Z79.899 Other long term (current) drug therapy; Z88.8 Allergy status to other drugs, medicaments and biological substances; Z91.09 Other allergy status, other than to drugs and biological substances; Z85.528 Personal history of other malignant neoplasm of kidney; Z90.5 Acquired absence of kidney; Z90.89 Acquired absence of other organs; Z90.49 Acquired absence of other specified parts of digestive tract; Z98.890 Other specified postprocedural states; Z87.891 Personal history of nicotine dependence; Z86.19 Personal history of other infectious and parasitic diseases; Z82.49 Family history of ischemic heart disease and other diseases of the circulatory system
CPT/HCPCS: 96361 ×4; 96372 ×2; 96375; 96365; 96366; 99285; 36415; 93005; 93306; 80053; 80048; 83605; 83735 ×2; 84484; 85025 ×2; 81003; 87040; 84145; 87635; 71046; 74177; G0378 ×3; J2543; J1650 ×2; J1642; Q9967

== ENCOUNTER → 2020-11-25 | Outpatient (CLI) | payer MEDICARE, OTHER | END | disposition home or self-care (01) | LOC: LABWHC1 09:02 | PROVIDERS: ATTEND Family Medicine | DX: Z20.822 Contact with and (suspected) exposure to COVID-19 (principal); J06.9 Acute upper respiratory infection, unspecified | CPT/HCPCS: U0003; U0005 ==

== ENCOUNTER 2021-03-23 21:19 | Emergency (ER) | payer MEDICARE, OTHER ==
[2021-03-23 21:30] VITALS: BP 159/91; PULSE 61; RESP 18; TEMP 97.7
--- NOTE | 2021-03-23 22:03 | CT ---
EXAMINATION TYPE: CT brain cspine wo con CT DLP: 1687.7 mGycm, Automated exposure control for dose reduction was used. DATE OF EXAM: 03/23/2021 9:55 PM COMPARISON: None.. CLINICAL INDICATION:Male, 65 years old with history of head injury; Head injury. TECHNIQUE: Brain: Multiple axial CT images of the brain were obtained without IV contrast. Cspine: Axial CT images from the skull base to the inferior aspect of T2 we obtained without intraven ous contrast. Coronal and sagittal reformatted images were also reviewed. FINDINGS: Brain: Extra-axial spaces: No abnormal extra-axial fluid collections. Ventricular system: Within normal limits Cerebral parenchyma: No acute intraparenchymal hemorrhage or mass effect. The boland-white junction is well differentiated. Cerebellum: Unremarkable. Mass effect: No evidence of midline shift. Intracranial vasculature: unremarkable Soft tissues: Left frontal subcutaneous hematoma measuring 7 mm. Calvarium/osseous structures: No depressed skull fracture. Paranasal sinuses and mastoid air cells: Mild Scattered paranasal sinus disease. Visualized orbits: Orbital contents are intact. Cervical spine: Fracture: None. Osseous structures: Multilevel degenerative disc disease changes with endplate spurring and disc oste ophyte complex's. Vertebral alignment: Within normal limits. Spinal canal/Neural Foramina: Chest effect complex with at least mild spinal canal swelling at C4-C5, C5-C6 and C6-C7. No evidence of significant neural foramina narrowing. Neck soft tissues: Prevertebral soft tissues are within normal limits. Other: The airway is patent. The lung apices are clear. IMPRESSION: 1. No acute intracranial process. 2. Left frontal lobe subcutaneous hematoma measuring 7 mm. 3. No evidence of cervical spine fracture. 4. Mild multilevel degenerative disc disease.
--- NOTE | 2021-03-23 23:37 | ED ---
Head Injury HPI - General Chief complaint: Head Injury Stated complaint: Head Injury, Urgent care sent for CT Source: patient Mode of arrival: ambulatory - History of Present Illness Initial comments: 65-year-old male presents emergency Department after he sustained a head injury. States that today he was using a wood splitter when the handle came back and hit him in the left side of the forehead. He denies losing consciousness. Has mild tenderness to the site. No headache or visual changes. Denies any neck pain. When into an urgent care near [place]. He reports then that he takes aspirin 2-3 times per week. Because of this they recommended a CT of his head. Denies any nausea or vomiting. No numbness, tingling or weakness in his extremities. 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 - Related Data Home Medications Medication Instructions Recorded Confirmed Allopurinol [Zyloprim] 100 mg PO DAILY 12/25/19 02/26/20 Torsemide [Demadex] 30 mg PO DAILY 12/25/19 02/26/20 lisinopriL 40 mg PO DAILY 12/25/19 02/26/20 Atorvastatin [Lipitor] 20 mg PO HS 02/26/20 02/26/20 Allergies/Adverse reactions: Allergies Allergy/AdvReac Type Severity Reaction Status Date / Time acetaminophen [From Tylenol] Allergy Anaphylaxis Verified 03/23/21 21:30 adhesive tape Allergy BLISTERS Verified 03/23/21 21:30 Review of Systems ROS Statement: Those systems with pertinent positive or pertinent negative responses have been documented in the HPI. ROS Other: All systems not noted in ROS Statement are negative. Past Medical History Past Medical History: Cancer Additional Past Medical History / Comment(s): b cell lymphoma diagnosed in oct 2019, first chemo treatment 12/12 at [facility], renal cancer Left kidney stage IV Mar 2004 - left kidney removed, Gout History of Any Multi-Drug Resistant Organisms: None Reported Past Surgical History: Adenoidectomy, Appendectomy, Hernia Repair, Tonsillectomy Additional Past Surgical History / Comment(s): left kidney removed Past Anesthesia/Blood Transfusion Reactions: No Reported Reaction Past Psychological History: No Psychological Hx Reported Smoking Status: Former smoker Past Alcohol Use History: Occasional Past Drug Use History: None Reported - Past Family History Father Family Medical History: Congestive Heart Failure (CHF) Mother Additional Family Medical History / Comment(s): old age Course Vital Signs 03/23/21 21:24 Temperature 97.7 F Pulse Rate 61 Respiratory 18 Rate Blood Pressure 159/91 O2 Sat by Pulse 98 Oximetry Medical Decision Making - Medical Decision Making Upon arrival patient placed into a deep he room. Thorough evaluation is performed. No focal neurologic complaint. Patient then sent for CT of his brain which demonstrates subcu hematoma. No intracranial process. Patient neurologically intact. Patient will be discharged home and instructed to follow-up with the PCP 2-4 days. Return for any new or worsening symptoms the patient agreement treatment plans discharged home in stable condition Disposition Clinical Impression: Concussion Disposition: HOME SELF-CARE Condition: Stable Instructions (If sedation given, give patient instructions): Concussion (ED) Additional Instructions: Please follow-up with your primary care doctor in 2-4 days. Return to the emergency room for any new or worsening symptoms Is patient prescribed a controlled substance at d/c from ED?: No Referrals: Seng Arvizu [Primary Care Provider] - 1-2 days Time of Disposition: 23:37
== END 2021-03-23 23:43 | disposition home or self-care (01) ==
LOC: EC 21:19
DX: S06.0X0A Concussion without loss of consciousness, initial encounter (principal); Z85.528 Personal history of other malignant neoplasm of kidney; Z90.5 Acquired absence of kidney; Z90.49 Acquired absence of other specified parts of digestive tract; Z87.891 Personal history of nicotine dependence; W22.8XXA Striking against or struck by other objects, initial encounter
CPT/HCPCS: 70450; 72125; 99283

== ENCOUNTER 2021-06-17 08:02 | Day surgery (SDC) | payer MEDICARE, OTHER ==
[2021-06-12 16:11] VITALS: BMI 41.0
[~2021-06-17 08:02] MED LIST: LACTATED RINGERS 1,000 ML IV SCH
[2021-06-17 08:35] VITALS: RESP 16; TEMP 97.8
[2021-06-17] MEDS ORDERED: LIDOCAINE 1% (10MG/ML) FOR IV START INTRADERMA ONE (08:35)
--- NOTE | 2021-06-17 08:49 | P.GSHP ---
History of Present Illness H&P Date: 06/17/21 CHIEF COMPLAINT: Colon screen HISTORY OF PRESENT ILLNESS: The patient is a 65-year-old male who presents for colon screen. Lower endoscopy was offered for further evaluation and management. PAST MEDICAL HISTORY: Please see list. PAST SURGICAL HISTORY: Please see list. MEDICATIONS: Please see list. ALLERGIES: Please see list. SOCIAL HISTORY: No illicit drug use FAMILY HISTORY: No reports of Crohn disease or ulcerative colitis. REVIEW OF ORGAN SYSTEMS: CONSTITUTIONAL: No reports of fevers or chills. PHYSICAL EXAM: VITAL SIGNS: Stable GENERAL: Well-developed pleasant in no acute distress. HEENT: No scleral icterus. Extraocular movements grossly intact. Moist buccal mucosa. NECK: Supple without lymphadenopathy. CHEST: Unlabored respirations. Equal bilateral excursions. CARDIOVASCULAR: Regular rate and rhythm. Distal 2+ pulses. ABDOMEN: Soft, nontender, nondistended. MUSCULOSKELETAL: No clubbing, cyanosis, or edema. ASSESSMENT: 1. Colon screen. PLAN: 1. Recommend proceeding with a lower endoscopy 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, first chemo treatment 12/12 at [facility], renal cancer Left kidney stage IV Mar 2004 - left kidney removed, Gout History of Any Multi-Drug Resistant Organisms: None Reported Past Surgical History: Adenoidectomy, Appendectomy, Hernia Repair, Tonsillectomy Additional Past Surgical History / Comment(s): left kidney removed, colonoscopy. Past Anesthesia/Blood Transfusion Reactions: No Reported Reaction Smoking Status: Former smoker - Past Family History Father Family Medical History: Congestive Heart Failure (CHF) Mother Additional Family Medical History / Comment(s): old age Medications and Allergies Home Medications Medication Instructions Recorded Confirmed Type Allopurinol [Zyloprim] 100 mg PO DAILY 12/25/19 06/12/21 History lisinopriL 40 mg PO DAILY 12/25/19 06/12/21 History amLODIPine [Norvasc] 10 mg PO DAILY 06/12/21 06/12/21 History Allergies Allergy/AdvReac Type Severity Reaction Status Date / Time acetaminophen [From Tylenol] Allergy Anaphylaxis Verified 03/23/21 21:30 adhesive tape Allergy BLISTERS Verified 03/23/21 21:30 latex Allergy Rash/Hives Verified 06/12/21 16:00 Surgical - Exam Vital Signs Temp Pulse Resp BP Pulse Ox 97.8 F 72 16 158/88 96 06/17/21 08:33 06/17/21 08:33 06/17/21 08:33 06/17/21 08:33 06/17/21 08:33
[2021-06-17] MEDS ORDERED: PROPOFOL 10 MG/ML 20 ML VIAL IV ONE (09:22)
--- NOTE | 2021-06-17 09:37 | P.PCN ---
Date of Procedure: 06/17/21 Description of Procedure: PREOPERATIVE DIAGNOSIS: Colonoscopy screening. Morbid obesity due to excess calories, BMI 41.0 History of lymphoma POSTOPERATIVE DIAGNOSIS: Colonoscopy screening. Morbid obesity due to excess calories, BMI 41.0 History of lymphoma Diverticulosis, sigmoid colon OPERATION: Colonoscopy to the cecum, ileocecal valve and appendiceal orifice. SURGEON: Michelle Cowan MD. ANESTHESIA: MAC. INDICATIONS: The patient is a 60-year-old female who presents for colonoscopy screening. Benefits and risks were described and informed consent was obtained. DESCRIPTION OF PROCEDURE: The patient had undergone Sutab prep. The patient had been brought into the operating room and laid in the left lateral decubitus position. After adequate intravenous sedation, the rectum was examined with 2% lidocaine jelly. No external hemorrhoids were encountered. The prostate fossa was unremarkable. The rectal tone was within normal limits. No lesions were palpated in the rectal vault. An Olympus colonoscope was advanced until the cecum, ileocecal valve and appendiceal orifice were clearly viewed. The prep was excellent. Sigmoid diverticulosis mild to moderate was encountered. No colonic polyps were found. No evidence of focal colitis was found. Retroflexion of the scope demonstrated grade 1 internal hemorrhoids without active bleeding or inflammation. The colon was desufflated. The patient had tolerated the procedure well. Withdrawal time was over 6 minutes. FINDINGS: Aronchick preparation quality scale 1 (1-5) Internal hemorrhoids, grade 1 No external prolapsed hemorrhoids. Sigmoid diverticulosis, mild to moderate No arteriovenous malformations. No adenomatous polyps. No focal colitis. RECOMMENDATIONS: Lower endoscopy in 10 years, 2031 Plan - Discharge Summary Discharge Rx Participant: Yes New Discharge Prescriptions: Continue lisinopriL 40 mg PO DAILY Allopurinol [Zyloprim] 100 mg PO DAILY amLODIPine [Norvasc] 10 mg PO DAILY Discharge Medication List Allopurinol [Zyloprim] 100 mg PO DAILY 12/25/19 [History] lisinopriL 40 mg PO DAILY 12/25/19 [History] amLODIPine [Norvasc] 10 mg PO DAILY 06/12/21 [History] Follow up Appointment(s)/Referral(s): Michelle Cowan MD [STAFF PHYSICIAN] - As Needed Patient Instructions/Handouts: Diverticulosis Diet (GEN), Diverticulosis (GEN), *Surgery [facility] - (Anesthesia) Endoscopy Discharge Instructions Activity/Diet/Wound Care/Special Instructions: Repeat colonoscopy in 10 years, 2031 Discharge Disposition: HOME SELF-CARE
[2021-06-17 09:56] VITALS: BP 146/90; PULSE 66
== END 2021-06-17 10:12 | disposition home or self-care (01) ==
LOC: ORWHC2ENDO 08:02
PROVIDERS: ATTEND Surgery Plastic and Reconstructive Surgery
DX: Z12.11 Encounter for screening for malignant neoplasm of colon (principal); K57.30 Diverticulosis of large intestine without perforation or abscess without bleeding; K64.0 First degree hemorrhoids; I10 Essential (primary) hypertension; Z85.72 Personal history of non-Hodgkin lymphomas; Z92.21 Personal history of antineoplastic chemotherapy; Z85.528 Personal history of other malignant neoplasm of kidney; Z90.5 Acquired absence of kidney; M10.9 Gout, unspecified; Z90.49 Acquired absence of other specified parts of digestive tract; Z98.890 Other specified postprocedural states; Z87.891 Personal history of nicotine dependence; Z82.49 Family history of ischemic heart disease and other diseases of the circulatory system; Z79.899 Other long term (current) drug therapy; Z88.6 Allergy status to analgesic agent; Z91.040 Latex allergy status; Z91.09 Other allergy status, other than to drugs and biological substances; E66.01 Morbid (severe) obesity due to excess calories; Z68.41 Body mass index [BMI] 40.0-44.9, adult; Z97.2 Presence of dental prosthetic device (complete) (partial)
CPT/HCPCS: J2704; G0121